=== PATIENT | male | born 1990 | race Caucasian/White ===

== ENCOUNTER 2022-09-04 08:08 | Emergency (ER) | payer OTHER, SELFPAY ==
--- NOTE | ~2022-09-04 | XR_ITS ---
EXAMINATION: XR LUMBOSACRAL SPINE CLINICAL INFORMATION: Low back pain COMPARISON: None TECHNIQUE: Three views of the lumbosacral spine. FINDINGS: Normal alignment. Vertebral body heights are maintained. No evidence of acute fracture. Disc spaces are maintained.. SI joints appear unremarkable. No abnormal soft tissue calcification. The paraspinal soft tissues are normal. XR/XR lumbar spine 2-3V IMPRESSION: No evidence of acute osseous abnormality.
--- NOTE | ~2022-09-04 | CT_ITS ---
EXAMINATION: CT CERVICAL SPINE WITHOUT CONTRAST CLINICAL INFORMATION: Upper neck pain. Possible atlas injury. COMPARISON: None. TECHNIQUE: Contiguous helical images of the cervical spine were obtained without IV contrast. Multiplanar reconstructions were performed. This CT examination was performed using dose optimization techniques as appropriate, variously including the following: *Automated exposure control *Adjustment of mA and/or kV according to patient size (this includes techniques or standardized protocols for targeted exams where dose is matched to indication/reason for exam; i.e. extremities or head) *Use of iterative reconstruction technique DLP: 428 mGy-cm FINDINGS: There is anatomic alignment of the vertebral bodies and posterior elements. The atlantoaxial and atlantooccipital articulations are intact. Vertebral body heights and intervertebral disc spaces are maintained. No evidence of acute fracture. No prevertebral soft tissue swelling. There is no cervical lymphadenopathy. The visualized thyroid gland is unremarkable. The visualized base of the brain is unremarkable. The visualized lung apices are clear. CT/CT cervical spine wo IV con IMPRESSION: No evidence for acute injury to the cervical spine.
[2022-09-04 09:02] VITALS: BP 114/65; PULSE 85; RESP 20; TEMP 36.8; O2SAT 98; BMI 22.0
--- NOTE | 2022-09-04 12:41 | ED.BACK ---
HPI - Back Pain/Injury General Chief Complaint: Neck Pain/Injury Stated Complaint: spine pain Time Seen by Provider: 09/04/22 12:22 Source: patient Mode of arrival: ambulatory Limitations: no limitations History of Present Illness HPI Narrative: Patient is a 32-year-old male with PMH of IBS presenting with an acute complaints upper neck pain and 7 years of lower back pain. He states that the pain is about a 5/10 at this time. Patient denies any trauma. Of note patient does not have a primary care provider at this time and is requesting referrals. Patient has had limited health care, and just recently received health insurance. 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 He has never received a workup for his back pain. Neck pain: Patient reports that the neck pain started last night, and is at the base of his thumb and central. He states that his neck got really tense, and he had limited range of motion when rotating his head to the left side. He states the pain is dull, and is located primarily at the base of his skull. Patient states he is unable to describe the sensation though it sounds like ?thousands of small grains of sand on a glass plate. He denies any trauma. Low Back pain: Patient reports 7 years of low back pain, describing it as sharp. He states the pain limits his range of motion. Also endorses 1 episode of sharp burning sensation going down the back of his leg in and doing rate behind his knee. He reports that after this episode his foot then went numb, ?felt cold . Patient uses ibuprofen at home for pain. Patient reports that this back pain has been impacting his ADLs. MD elicited complaint: back pain and other (Upper neck pain) Pertinent past history: prior back pain (7 years) Onset (ago): day(s) (1 day of cervical neck pain) Timing: improved (Neck pain is improving) and progressively worsening (Back pain progressively worsening) Severity: moderate Similar Symptoms Previously: No Quality: burning (Low back pain), sharp (Low back pain) and dull (Cervical pain) Location: left lower back Radiation: left upper leg (Stops at the knee) Exacerbating factors: movement, walking, lifting and other (Hip flexion) Relieving factors: other (RAST) Context: while lifting, turning/twisting, bending and unknown Associated symptoms: difficulty walking Treatments prior to arrival: NSAIDS and acetaminophen Work related injury: No Related Data Allergies Allergy/AdvReac Type Severity Reaction Status Date / Time No Known Allergies Allergy Unverified 09/04/22 09:01 [No Known Allergies*] Review of Systems Review of Systems: Constitutional : No trauma, No Weight loss, No Fever, No Chills, ENT/Mouth : + Tinnitus, No Hearing loss, No Ear Pain, No Nasal Congestion, No Sinus Pain, No Hoarseness, No sore throat, No Rhinorrhea, No Swallowing Difficulty Cardiovascular : No Chest Pain, No SOB Respiratory : No Cough, No Dyspnea Gastrointestinal : No Nausea, No Vomiting, + Diarrhea, No abdominal Pain, No Hematochezia, No Melena Genitourinary : No Dysuria, No Urinary Frequency, No Hematuria, No Urinary or Bowel Incontinence/retention Musculoskeletal : + Neck pain, + low Back pain, No joint stiffness, No joint swelling Skin : No Skin Lesions, No rash or signs of infection Neuro : + 1 episode of tingling down left leg, No tingling b/l arms. No Weakness, + left leg radiation (1 episode), + Numbness, + headache, no loss of bowel or bladder incontinence, no saddle anesthesia Denies history of IV drug usage. Yes all other systems are reviewed and are negative PMFSH Past Medical History Attestation statement: The following information was validated with the patient. Source: old records reviewed and nursing notes reviewed Social History Social History Advance Directives: No Physical Exam Vital Signs: Vital Signs: Last Vital Signs Temp 98.3 F 09/04/22 09:02 Pulse 85 09/04/22 09:02 Resp 20 09/04/22 09:02 BP 114/65 09/04/22 09:02 Pulse Ox 98 09/04/22 09:02 O2 Del Method 09/04/22 09:02 BMI result Body Mass Index 22.0 vital signs have been reviewed as normal and appeared to be correct. Blood pressure normal. Heart rate normal. Respiration rate normal. Temperature normal. Oxygen saturation normal. Appearance: Alert. Oriented X3. No acute distress. Head: Normal external exam. Normocephalic. Atraumatic. Eyes: PERRLA. EOMI. Conjunctiva and sclera normal. Eyelids normal. ENT: Moist mucous membranes. No trismus noted. No drooling noted. No muffled voice noted. Neck: Normal inspection. Neck supple. FROM. No meningeal signs. Full range of motion. Midline Tenderness at the base of the skull. -Spurling, - facet loading. CVS: Normal heart rate and rhythm. Heart sound normal. No murmurs noted. Pulses normal throughout. Respiratory: No respiratory distress. Painless inspiration. Breath sounds normal. No wheezes/rales/rhonchi noted. Chest nontender. No accessory muscle usage noted or decreased air movement noted. Back: No CVA tenderness. Limited flexion noted. No obvious deformities, or edema. Mild para-spinal muscular tenderness from lumbar region to coccyx. Moderate tenderness around the L5/S1/S2 region. Possible left-sided SI joint pain noted with Gonzalo finger test. + Facet loading on left lumbar spine. All other ROM intact back and lower extremities. 5/5 strength hip extension/flexion, abduction, adduction. Mild Lumbar pain with hip flexion against resistance. Straight leg raise test negative on right; Straight leg raise test negative on left; Reflexes normal ankle and knee bilaterally; EHL motor strength normal bilaterally. No rashes/lesion/induration/fluctuance or signs infection noted. Skin: Skin warm and dry. Normal skin color. Normal skin turgor. No rashes/lesions/lacerations noted. Extremities: No lower extremity edema. Extremities exhibit normal range of motion. Extremities nontender. Neuro: Oriented X 3. No motor deficit. No sensory deficit. Reflexes normal. Patient has a normal steady gait. Course Course Course Narrative: Patient is 32-year-old male presenting with upper cervical pain, and low back pain, pain is currently a 5/10. Upper cervical pain started last night, lower lumbar pain started 7 years ago. Physical exam is significant for -low back pain: limited lumbar flexion, increased focal tenderness around the L5-S2, worse on the left side. + Left-sided lumbar facet loading, + Gonzalo finger test, - straight leg raise. -Cervical pain: Full range of motion. Central tenderness at the base of the skull. Possible spasm of the right cervical muscles. - facet loading, - Spurling. Lumbar pain that consistent with S1/S2 radiculopathy. Possible facet arthropathy. And x-rays ordered to rule out any compression fractures, to confirm diagnosis of a rthritis. 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 CT scan of the neck ordered to rule out soft tissue injury, compression fracture, disc bulge. Plan: - CT scan of the neck - X-ray of the lumbar spine - Referral to PCP. Referral to [facility]. Reevaluation(s) Reevaluation #1: Imaging negative for any acute processes. Will DC home with instructions return if any new or worsening symptoms follow up with primary care provider I gave him a few numbers that he can call to establish a primary care provider. Patient understands agrees with this plan. Time: 14:01 [facility] - Back Pain/Injury Medical Records Attestation: I reviewed the patient's medical records. Imaging Data ct scan of cervical spine: Attestation: I personally reviewed and interpreted this imaging study as follows: Radiologist's impression: FINDINGS: There is anatomic alignment of the vertebral bodies and posterior elements. The atlantoaxial and atlantooccipital articulations are intact. Vertebral body heights and intervertebral disc spaces are maintained.? No evidence of acute fracture. No prevertebral soft tissue swelling. There is no cervical lymphadenopathy. The visualized thyroid gland is unremarkable. The visualized base of the brain is unremarkable. The visualized lung apices are clear. CT/CT cervical spine wo IV con IMPRESSION: No evidence for acute injury to the cervical spine. lumbar spine xray: Attestation: I personally reviewed and interpreted this imaging study as follows: Radiologist's impression: FINDINGS: Normal alignment. Vertebral body heights are maintained. No evidence of acute fracture. Disc spaces are maintained.. SI joints appear unremarkable. No abnormal soft tissue calcification. The paraspinal soft tissues are normal. XR/XR lumbar spine 2-3V IMPRESSION: No evidence of acute osseous abnormality. Discharge Plan Discharge Clinical Impression: Strain of neck muscle, Chronic back pain, Lumbosacral radiculopathy Patient Disposition: Home, Self-Care Instructions: Cervical Strain (ED), Chronic Back Pain (DC) Additional Instructions: You were seen in the emergency department for acute neck pain and low back pain. An x-ray and CT scan were performed. It is likely that you have a strain of the lateral neck muscles, and arthritis the cervical neck. It is also likely that you have arthritis of the lower lumbar spine. I gave you your results. You were offered prednisone, ibuprofen, Tylenol and muscle relaxer although he reported that you will not take them that you will take [id number] medication if you needed. You may also use a warm pack as needed for your low back pain. You may also use an ice pack as needed for your pain. You were given recommendations for primary care providers and referral for [facility]. You may need further workup/diagnostic imaging such as an MRI. Referrals: [facility] [Provider Group] (Chronic low back pain for the past 7 years. S1 radicular pain to the back of the knee. ) Stand Alone Forms: Work/School Release
--- NOTE | 2022-09-04 13:52 | PC.NURSE ---
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 provider aware
== END 2022-09-04 14:00 | disposition home or self-care (01) ==
PROVIDERS: Emergency Provider Emergency Medicine Emergency Medical Services
DX: S16.1XXA Strain of muscle, fascia and tendon at neck level, initial encounter (principal); X50.0XXA Overexertion from strenuous movement or load, initial encounter; G89.29 Other chronic pain; M54.50 Low back pain, unspecified; M54.17 Radiculopathy, lumbosacral region; Y93.89 Activity, other specified; Y92.239 Unspecified place in hospital as the place of occurrence of the external cause; Y99.0 Civilian activity done for income or pay
CPT/HCPCS: 72100; 72125; 99282; 99284

== ENCOUNTER 2023-02-26 09:29 | Emergency (ER) | payer BC, SELFPAY ==
[2023-02-26 09:45] VITALS: BP 113/76; PULSE 85; RESP 16; TEMP 36.8; O2SAT 99; BMI 21.2
--- NOTE | 2023-02-26 10:14 | PC.NURSE ---
Pt reporting that he thinks he has a Right ingenial hernia, he has had one in his left side a few years ago, and had mesh placed. denies swelling in testicle but reports it comes in and out when I sneeze or move around reporting 2/10 pain. Does heavy lifting at job
--- NOTE | 2023-02-26 10:43 | ED_ITS ---
HPI - General Adult General Chief complaint: Abdominal Pain Stated complaint: Hernia Time Seen by Provider: 02/26/23 10:23 Source: patient and RN notes reviewed Mode of arrival: ambulatory Limitations: no limitations History of Present Illness HPI narrative: This is a 32-year-old male, with no significant past medical history who presents to the emergency department with complaints of ?hernia. Patient states that 2 weeks ago he noticed a bulge in his right lower abdomen that is able to be pushed back in. Patient reports that when he is straining his abdominal muscles as well as lifting heavily this bulge becomes more pronounced. He reports that the area is slightly tender but otherwise is not painful. He denies any fevers or chills. He has a history of a left inguinal hernia requiring surgical repair. He is here today as he works at [employer] and needs a formal medical clearance to better assist his boss in which activities he can perform as his job requires him to perform heavy lifting. MD complaint: ?Hernia Onset (ago): week(s) Location: abdomen Radiation: non-radiation Severity: moderate Pain Consistency: intermittent Relieving factors: rest Exacerbating factors: movement Associated symptoms: denies other symptoms Treatments prior to arrival: none Related Data Allergies Allergy/AdvReac Type Severity Reaction Status Date / Time No Known Allergies Allergy Unverified 09/04/22 09:01 [No Known Allergies*] Review of Systems Review of Systems: Yes all other systems are reviewed and are negative COUNT INCLUDES THE [facility] Social History Social History Smoked in Last 30 Days: Yes Substance Use Type: Marijuana Substance Use Frequency: Daily Advance Directives: No Physical Exam ED Vital Signs: Vital Signs - 24 hr 02/26/23 09:45 02/26/23 11:23 Temperature 98.3 F Pulse Rate 85 81 Respiratory Rate 16 16 Blood Pressure 113/76 119/75 Pulse Oximetry 99 97 Oxygen Delivery Method Room Air Room Air BMI result Body Mass Index 21.2 General: Awake, alert, and oriented X3. No acute distress. HEENT: Normal inspection CVS: Normal heart rate and rhythm. Pulses normal. Respiratory: No respiratory distress Skin: Warm, dry, no rashes noted to exposed skin. Normal skin color. Normal skin turgor. Abdomen: There is a approximately 4inch, soft palpable hernia noted to the right lower abdomen, reproducible with mild tenderness. No overlying ecchymosis, erythema, warmth or induration. No drainage. Extremities: Normal inspection Neuro: Oriented X 3. No motor deficit. No sensory deficit. Medical Decision Making Medical Decision Making MDM Narrative: 32 y/o M, with no known past medical history, presenting for evaluation of ?hernia x 2 weeks. Patient reports that he works at [employer] which requires him to frequently lift heavy objects. He states that two weeks ago he noticed a bulge region in his right lower abdomen. He has a history of a inguinal hernia on the left which required surgical repair as a teenager. On examination, palpable right lower abdominal wall hernia that does not extend into the testes. Hernia is reducible with no signs of strangulation. Patient requesting medical clearance for his work. Discussed that he is unable to perform heavy lifting activities, and he does have light duty options at work. Patient given referral to surgeon as this is likely only on to get worse. Patient given red flag warning signs of when to return, and signs of strangulation. Patient also given list of primary care physicians as well as recommendations on how to obtain a primary care physician. Patient understands and agrees with plan, patient is stable for discharge. Differential Diagnosis Differential Diagnoses: The differential diagnosis associated with the presentation includes Hernia, inguinal hernia, abdominal mass Incarcerated hernia Discharge Plan Discharge Clinical Impression: Hernia Patient Disposition: Home, Self-Care Instructions: Inguinal Hernia (ED) Additional Instructions: You have a hernia that is likely going to need surgery. Please follow-up with the general surgeon for further management. Call today to make an appointment Wear compression shorts as this can help support this area. No heavy lifting until you are seen by the surgical team. If you develop any new or worsening symptoms such as overlying skin changes, fevers, chills, worsening abdominal pain, unable to reduce the hernia, please return for further evaluation. Follow-up with your primary care physician. Referrals: [facility] [Provider Group] [facility] [Physician] - Stand Alone Forms: Work/School Release Interventions: ED Discharge Assessment Last Done: 02/26/23 11:25 Discharge Date/Time: 02/26/23 11:31
[2023-02-26 11:23] VITALS: BP 119/75; PULSE 81; RESP 16; O2SAT 97
== END 2023-02-26 11:31 | disposition home or self-care (01) ==
PROVIDERS: Emergency Provider Emergency Medicine
DX: R10.31 Right lower quadrant pain (principal); K40.90 Unilateral inguinal hernia, without obstruction or gangrene, not specified as recurrent
CPT/HCPCS: 99282; 99284

== ENCOUNTER 2023-03-03 06:12 | Emergency (ER) | payer BC, SELFPAY ==
--- NOTE | ~2023-03-03 | CT_ITS ---
EXAMINATION: CT CERVICAL SPINE WITHOUT CONTRAST CLINICAL INFORMATION: Neck pain and stiffness. COMPARISON: None available. TECHNIQUE: 3 mm thin axial and reformatted 2 mm thin sagittal and coronal images of cervical spine were obtained without contrast. This CT examination was performed using dose optimization techniques as appropriate, variously including the following: *Automated exposure control *Adjustment of mA and/or kV according to patient size (this includes techniques or standardized protocols for targeted exams where dose is matched to indication/reason for exam; i.e. extremities or head) *Use of iterative reconstruction technique DLP: 485 mGy-cm FINDINGS: On sagittal reconstructed images there is mild straightening of cervical lordosis. The vertebral heights, alignment and disc heights are normal. The craniovertebral junction and the C1-C2 alignment is normal. There is mild right C7-T1 and T1-T2 facet joint and arthropathy. There is no visible acute fracture, dislocation or subluxation. Punctate calcifications are seen in bilateral tonsillar pillars but no enlargement. The airway is widely patent. Visualized thyroid, submandibular and parotid glands are unremarkable. CT/CT cervical spine wo IV con IMPRESSION: Mild straightening of cervical lordosis likely spasm. No visible acute fracture, dislocation or subluxation seen. Fleischner guidelines were followed.
[2023-03-03 06:22] VITALS: BP 116/66; BP 140/88; PULSE 72; PULSE 80; RESP 16; TEMP 37; O2SAT 100; O2SAT 99; BMI 21.2
--- NOTE | 2023-03-03 06:37 | ED.NECK ---
HPI - Neck Pain/Injury General Chief Complaint: Neck Pain/Injury Stated Complaint: Neck Pain Time Seen by Provider: 03/03/23 06:35 Source: patient Mode of arrival: ambulatory History of Present Illness HPI Narrative: 32-year-old male no significant past medical history presenting to the ED complaining of right-sided neck pain since waking this morning. Reports pain worse with movement and rightward rotation. Denies known injury/trauma or fall, headache, lightheadedness/dizziness, vision change/loss, numbness/tingling, weakness. Denies recent neck manipulation/trauma or heavy lifting. Does report was recently doing yard work for in-laws MD complaint: neck pain Related Data Previous Rx's Medication Instructions Recorded acetaminophen 500 mg tablet 500 mg PO Q6H PRN fever or pain 03/03/23 (Tylenol Extra Strength) #14 tabs cyclobenzaprine 5 mg tablet 5 mg PO Q8H PRN pain (scale score 03/03/23 7-10) 5 days #14 tabs lidocaine 5 % topical patch 1 patch topical DAILY PRN pain #30 03/03/23 (Lidoderm) ea naproxen 500 mg tablet 500 mg PO BID PRN pain 10 days #20 03/03/23 tabs Allergies Allergy/AdvReac Type Severity Reaction Status Date / Time No Known Allergies Allergy Verified 03/03/23 07:08 [No Known Allergies*] Review of Systems Review of Systems: Constitutional: No Fever, No Chills ENT/Mouth: No Ear Pain, No Nasal Congestion, No sore throat, No Rhinorrhea, No Swallowing Difficulty Cardiovascular: No Chest Pain, No SOB Respiratory: No Cough, No Sputum Gastrointestinal: No Nausea, No Vomiting, No Diarrhea, No Constipation, No Abdominal pain Genitourinary: No Dysuria, No Hematuria, No Urinary Incontinence/retention Musculoskeletal: +joint pain, No Myalgias, No Joint Swelling Skin: No Skin Lesions, No rash Neuro: No Weakness, No Numbness, No Paresthesias Yes all other systems are reviewed and are negative Constitutional: Constitutional: Reports as per HPI Neurologic: Denies Abnormal speech present [facility] Past Medical History Attestation statement: The following information was validated with the patient. Social History Social History Alcohol intake: current Alcohol intake frequency: holidays/special occasions only Alcohol type: wine Smoked in Last 30 Days: Yes Use of substances other than those prescribed or required for medical reasons: Yes Substance Use Type: Marijuana Substance Use Frequency: Daily Advance Directives: No Physical Exam Vital Signs: Vital Signs: Last Vital Signs Temp 98.6 F 03/03/23 06:22 Pulse 72 03/03/23 06:22 Resp 16 03/03/23 06:22 BP 116/66 03/03/23 06:22 Pulse Ox 99 03/03/23 06:22 O2 Del Method Room Air 03/03/23 06:22 BMI result Body Mass Index 21.2 Const: General: cooperative, healthy appearing and no acute distress Orientation/consciousness: patient oriented x3 Limitations: no limitations HEENT: Head: Yes normal to inspection and Yes atraumatic Ears: hearing grossly normal bilaterally, external ears normal and TM's normal bilaterally General nose exam: Normal external nose present Face and sinus: Yes normal facial exam Eyes: General: appearance normal, both eyes and all related structures Pupils: Equal, round and reactive pupils present EOM: EOMs intact bilaterally Neck: Other: no midline cervical spinous ttp. +right sided paraspinal and trapezius muscle ttp. Neck: Yes normal visual inspection, Yes no meningeal signs, Yes supple, No anterior neck swelling and Yes torticollis Resp: Effort & Inspection: normal respiratory effort and no respiratory distress Auscultation: clear to auscultation bilaterally Cardio: Rate: regular rate Heart sounds: S1 normal heart sound present and S2 normal heart sound present Peripheral pulses: Peripheral pulses 2+ throughout Back/Spine/Pelvis: Other: No midline cervical/thoracic/lumbar spinous tenderness/step-off or deformity Skin: Rashes: no rashes Wounds: no wounds Neuro: General: patient oriented x3, gait normal, tone normal, moves all extremities, no meningeal signs, no focal motor deficits and CN's II-XI intact bilaterally Cranial nerves: Yes CN's II-XII intact bilaterally and Yes Equal, round and reactive pupils present Cognition (Neuro): normal cognition Speech: No Abnormal speech present Gait exam (Neuro): Normal gait present Motor exam (neuro): 5/5 motor strength present throughout Extrem: General: Yes normal to inspection Course Course Course Narrative: CT cervical spine wo IV con IMPRESSION: Mild straightening of cervical lordosis likely spasm. No visible acute fracture, dislocation or subluxation seen. ? Fleischner guidelines were followed. >0840--patient reports symptomatic improvement after medications given in the ED Results discussed with patient including worrisome signs and symptoms and strict return precautions, and when to return to the emergency department. They verbalized understanding and feel safe for discharge at this time. Medications Administered Discontinued Medications Generic Name Dose Route Start Last Admin Trade Name William PRN Reason Stop Dose Admin Diazepam 2 mg 03/03/23 06:58 03/03/23 07:08 Diazepam 2 Mg Tablet PO 03/03/23 06:59 2 mg ONCE ONE Administration Ketorolac Tromethamine 30 mg 03/03/23 06:58 03/03/23 07:11 Ketorolac Tromethamine 30 Mg/Ml Vial IM 03/03/23 06:59 30 mg ONCE ONE Administration Medical Decision Making Medical Decision Making MDM Narrative: 32-year-old male no significant past medical history presenting to the ED complaining of right-sided neck pain since waking this morning. On exam vital signs stable, NAD, nontoxic appearing, no midline spinous tenderness throughout. Right-sided cervical paraspinal and trapezius muscle tenderness elicited. + torticollis, no meningeal signs. No focal deficits. Concern for MSK pain/spasming. Low suspicion for arterial dissection, meningitis/encephalitis. No evidence of infection/cellulitis. TM WNL. Plan: CT cervical spine per patient request, pain control, re-evaluate Please refer to course for remaining clinical decision making, interpretation of labs/imaging results, and discussions with consultants and/or family members. Differential Diagnosis Differential Diagnoses: The differential diagnosis associated with the presentation includes As above Admission/Observation Consideration of admission/observation: Escalation of care including admission/observation considered Lab Data [facility] Lab Attestation statement: I reviewed the patient's lab results. Radiology Impression Discussion of test interpretation with radiology: I have reviewed the radiologist's reading. External Record Review External record reviewed: Inpatient record, Office record, Outpatient record, Prior outpatient labs, Prior outpatient radiology, Primary care record and Outside ED record Discharge Plan Discharge Clinical Impression: Muscle spasms of neck Patient Disposition: Home, Self-Care Instructions: Muscle Spasm (ED) Additional Instructions: Your CT scan shows evidence of muscle spasming. No fracture or dislocation Your pain is musculoskeletal Flexeril is a muscle relaxer, take at night as it makes you drowsy, do not drive, drink alcohol, or operate machinery while taking it Naproxen as an anti-inflammatory / pain medication, take with food Lidoderm patches are numbing patches, apply to painful area In addition take Tylenol at home If symptoms persist or worsen, pain becomes unbearable, you developed urinary retention or incontinence, or weakness return to the ED Prescriptions: New acetaminophen [Tylenol Extra Strength] 500 mg tablet 500 mg PO Q6H PRN (Reason: fever or pain) Qty: 14 0RF lidocaine [Lidoderm] 5 % adhesive patch,medicated 1 patch topical DAILY MDD remove after 12 hours PRN (Reason: pain) Qty: 30 0RF Rx Instructions: leave on most painful area for up to 12 hrs cyclobenzaprine 5 mg tablet 5 mg PO Q8H PRN (Reason: pain (scale score 7-10)) 5 Days Qty: 14 0RF naproxen 500 mg tablet 500 mg PO BID PRN (Reason: pain) 10 Days Qty: 20 0RF Referrals: Physician,None [Primary Care Provider] - Stand Alone Forms: Work/School Release Interventions: ED Discharge Assessment Last Done: 03/03/23 09:02 Discharge Date/Time: 03/03/23 09:02
[2023-03-03] MEDS: diazePAM 2 MG TABLET PO (07:08)
[2023-03-03] MEDS: Ketorolac Tromethamine 30 MG/ML VIAL IM (07:11)
== END 2023-03-03 09:02 | disposition home or self-care (01) ==
PROVIDERS: Emergency Provider Emergency Medicine
DX: M62.838 Other muscle spasm (principal); M54.2 Cervicalgia
CPT/HCPCS: 72125; 96372; 99284; J1885

== ENCOUNTER 2023-03-17 07:21 | Emergency (ER) | payer BC, SELFPAY ==
[2023-03-17 07:46] VITALS: BP 139/76; PULSE 80; RESP 18; TEMP 37; O2SAT 99; BMI 21.2
--- NOTE | 2023-03-17 08:25 | ED_ITS ---
HPI - Neck Pain/Injury General Chief Complaint: Neck Pain/Injury Stated Complaint: Neck pain Time Seen by Provider: 03/17/23 07:45 Source: patient Mode of arrival: ambulatory Limitations: no limitations History of Present Illness MD complaint: neck pain Onset (ago): week(s) (2) Radiation: right lateral, right shoulder and right upper extremity Severity: severe Severity scale (1-10): 8 Quality: sharp, aching and tingling Duration: constant Relieving factors: medication OTC/prescribed Exacerbating factors: movement of extremity and movement of neck Associated symptoms: tingling Treatments prior to arrival: acetaminophen, ibuprofen, naproxen and prescription analgesic Related Data Previous Rx's Medication Instructions Recorded acetaminophen 500 mg tablet 500 mg PO Q6H PRN fever or pain 03/03/23 (Tylenol Extra Strength) #14 tabs meloxicam 15 mg tablet 15 mg PO DAILY #20 tabs 03/17/23 methocarbamol 750 mg tablet 750 mg PO Q8H PRN spasm #20 tabs 03/17/23 prednisone 20 mg tablet 20 mg PO DAILY #5 tabs 03/17/23 Allergies Allergy/AdvReac Type Severity Reaction Status Date / Time No Known Allergies Allergy Verified 03/17/23 07:49 [No Known Allergies*] [facility] Social History Social History Alcohol intake: current Alcohol intake frequency: holidays/special occasions only Alcohol type: wine Substance Use Type: Marijuana Advance Directives: No Advance Directives Information Provided: Yes Physical Exam Vital Signs: Vital Signs: Last Vital Signs Temp 98.6 F 03/17/23 07:46 Pulse 80 03/17/23 07:46 Resp 18 03/17/23 07:46 BP 139/76 03/17/23 07:46 Pulse Ox 99 03/17/23 07:46 O2 Del Method Room Air 03/17/23 07:46 BMI result Body Mass Index 21.2 GEN: Well developed, no acute distress, alert, oriented HEENT: Normocephalic, atraumatic, normal external ears, nose appears normal Eyes: Normal to appearance Neck: Right paraspinous tenderness, no midline tenderness, no step-off, no lymphadenopathy Respiratory: Talks in complete sentences, no respiratory distress Extremities: No clubbing cyanosis or edema Neurologic: No focal neurologic deficits, cranial nerves 2-12 intact, gait no rmal, strength is 5/5 in bilateral upper extremities, sensation is intact bilaterally Skin: No rash Course Course Course Narrative: Patient presents with acute neck pain. This is most likely either muscle spasm or some sort of cervical radiculopathy. Will start patient on steroids, continue anti-inflammatory medications, Tylenol as needed, capsaicin cream muscle relaxers as needed. I will refer the patient to spine surgery as well for further evaluation. He is aware he may require further intervention such as com pulmonary care like chiropractics, acupuncture, physical therapy. Medical Decision Making Medical Decision Making MDM Narrative: 32-year-old male presents with nontraumatic PET neck pain. He was seen previously for the same symptoms. X-ray was negative except for straightening of the normal lordotic curve. Examination reveals some mild right paraspinous tenderness, no midline tenderness or step-off, he was otherwise neurovascularly intact and strength was preserved. I suspect either muscle spasm, sprain, strain or cervical radiculopathy. Patient will be treated with anti- inflammatory medications, analgesics, muscle relaxers. Will refer patient to spine surgery Differential Diagnosis Differential Diagnoses: The differential diagnosis associated with the presentation includes (See above) External Record Review External record reviewed: Prior outpatient radiology (X-ray neck) Tests considered The following testing was considered but not selected: X-ray neck, CT cervical spine, MRI cervical spine Prescription Management I considered prescription management with: Pain Medication Discharge Plan Discharge Clinical Impression: Torticollis Patient Disposition: Home, Self-Care Instructions: Neck Pain (ED) Additional Instructions: For pain: Meloxicam 15 mg daily for 14 days Tylenol 1000 mg every 6 hours as needed for additional pain relief MEthocarbamol 750 every 8 hours as needed, may cause sedation Capsaicin Cream three times daily as needed prednisone, starting tomorrow, 20 mg daily for 5 days heat and/or ice as needed Prescriptions: New meloxicam 15 mg tablet 15 mg PO DAILY Qty: 20 0RF methocarbamol 750 mg tablet 750 mg PO Q8H PRN (Reason: spasm) Qty: 20 0RF prednisone 20 mg tablet 20 mg PO DAILY Qty: 5 0RF Discontinued lidocaine [Lidoderm] 5 % adhesive patch,medicated 1 patch topical DAILY MDD remove after 12 hours PRN (Reason: pain) Qty: 30 0RF Rx Instructions: leave on most painful area for up to 12 hrs cyclobenzaprine 5 mg tablet 5 mg PO Q8H PRN (Reason: pain (scale score 7-10)) 5 Days Qty: 14 0RF naproxen 500 mg tablet 500 mg PO BID PRN (Reason: pain) 10 Days Qty: 20 0RF No Action acetaminophen [Tylenol Extra Strength] 500 mg tablet 500 mg PO Q6H PRN (Reason: fever or pain) Qty: 14 0RF Referrals: Nico Barreto MD, PhD [Physician] - Stand Alone Forms: Work/School Release
[2023-03-17] MEDS: Ibuprofen 800 MG TABLET PO (09:03)
[2023-03-17] MEDS: dexAMETHasone 2 MG TABLET 10 MG PO (09:03)
[2023-03-17] MEDS: Acetaminophen 325 MG TABLET 975 MG PO (09:04)
--- NOTE | 2023-03-17 10:05 | PC.NURSE ---
late entry 0915 Pt evaluated by provider. medicated as ordered. pt aware and agreeable to plan. states no questions.
== END 2023-03-17 10:08 | disposition home or self-care (01) ==
PROVIDERS: Emergency Provider Emergency Medicine
DX: M43.6 Torticollis (principal); M54.2 Cervicalgia; M25.511 Pain in right shoulder; Z79.899 Other long term (current) drug therapy
CPT/HCPCS: 99283; 99284; J8540

== ENCOUNTER → 2023-03-25 10:19 | Outpatient (BNVA) | payer BC, SELFPAY | PROVIDERS: Visit Provider Surgery ==

== ENCOUNTER 2023-03-31 04:57 | Emergency (ER) | payer BC, SELFPAY ==
[2023-03-31 05:14] VITALS: BP 110/74; PULSE 93; RESP 16; O2SAT 99; BMI 21.7
--- NOTE | 2023-03-31 05:39 | ED_ITS ---
HPI - Neck Pain/Injury General Chief Complaint: Neck Pain/Injury Stated Complaint: Neck pain Time Seen by Provider: 03/31/23 05:18 History of Present Illness HPI Narrative: Patient is a 32-year-old male presents today with having neck pain. The neck pain has been ongoing for the last month. Patient had a CT scan of the C-spine done previously. Was grossly negative for any acute evidence of fracture. No gross inflammation noted. No gross nerve root impingement noted. Patient cla ims the pain is still getting worse. It is worse with movement to the right. The pain is over the right neck right trapezius area. There is no radiation to the pain. Patient claims that the symptoms are not affected by movement of his head to the left. Patient denies any coughing congestion upper respiratory symptoms. Denies any focal weakness. He is from home. He works at [employer] and had to lift objects from [place] for time. No history of IV drug use Related Data Previous Rx's Medication Instructions Recorded acetaminophen 500 mg tablet 500 mg PO Q6H PRN fever or pain 03/03/23 (Tylenol Extra Strength) #14 tabs meloxicam 15 mg tablet 15 mg PO DAILY #20 tabs 03/17/23 methocarbamol 750 mg tablet 750 mg PO Q8H PRN spasm #20 tabs 03/17/23 prednisone 20 mg tablet 20 mg PO DAILY #5 tabs 03/17/23 methylprednisolone 4 mg tablets in 4 mg PO DAILY #21 ea 03/31/23 a dose pack (Medrol (Arnulfo)) Allergies Allergy/AdvReac Type Severity Reaction Status Date / Time No Known Allergies Allergy Verified 03/31/23 05:16 [No Known Allergies*] Review of Systems Review of Systems: Positive neck pain on the right side Yes all other systems are reviewed and are negative [facility] Past Medical History Attestation statement: The following information was validated with the patient. Surgical History Hx of hernia repair Social History Social History Alcohol intake: never Substance Use Type: Marijuana Physical Exam Vital Signs: Vital Signs: Last Vital Signs Pulse 93 03/31/23 05:14 Resp 16 03/31/23 05:14 BP 110/74 03/31/23 05:14 Pulse Ox 99 03/31/23 05:14 O2 Del Method Room Air 03/31/23 05:14 BMI result Body Mass Index 21.7 Appearance: Alert. Oriented X3. No acute distress. Eyes: Pupils equal, round and reactive to light. ENT: Pharynx normal. Neck: Normal inspection. Neck supple. No lymph nodes noted. No crepitus. Positive pain on palpation of the right trapezius muscle. Trachea is midline. Supple. CVS: Normal heart rate and rhythm. Pulses normal. Normal S1 and S2 Respiratory: No respiratory distress. Breath sounds normal. No Wheezing. No rales Abdomen: Soft and nontender. No rigidity. No distention. good BS x4 Skin: Skin warm and dry. Normal skin color. Normal skin turgor. Extremities: No lower extremity edema. Neurovascular intact to all extremities. No Lacerations. No Rash Neuro: Oriented X 3. No motor deficit. No sensory deficit. Moving all extermities. No slurred speech. Cranial nerve 2-12 intact. Medical Decision Making Medical Decision Making [facility] Narrative: Patient had a CT scan of the C-spine done previously. Symptoms are consistent with having torticollis. Patient well appearing. Neurologically intact. Will have patient take a steroid Medrol Dosepak. Close follow-up on an outpatient basis. Patient has appointment with primary. He does not have a referral to spine. Will ask patient to contact primary for a contact for spine as pain has been persistent for weeks. In stable condition. No bowel urinary incontinence. No focal weakness. Differential Diagnosis Fracture, torticollis, spinal cord impingement. Lab Data [facility] Lab Attestation statement: I reviewed the patient's lab results. External Record Review External record reviewed: Inpatient record Discharge Plan Discharge Clinical Impression: Torticollis Patient Disposition: Home, Self-Care Instructions: Neck Pain (ED) Prescriptions: New methylprednisolone [Medrol (Arnulfo)] 4 mg tablets,dose pack 4 mg PO DAILY Qty: 21 0RF Rx Instructions: As directed by the packaging No Action acetaminophen [Tylenol Extra Strength] 500 mg tablet 500 mg PO Q6H PRN (Reason: fever or pain) Qty: 14 0RF meloxicam 15 mg tablet 15 mg PO DAILY Qty: 20 0RF methocarbamol 750 mg tablet 750 mg PO Q8H PRN (Reason: spasm) Qty: 20 0RF prednisone 20 mg tablet 20 mg PO DAILY Qty: 5 0RF Referrals: Physician,Unknown J [Primary Care Provider] - (Please follow-up with spine surgery in the next week)
== END 2023-03-31 05:50 | disposition home or self-care (01) ==
PROVIDERS: Emergency Provider Emergency Medicine Emergency Medical Services
DX: M43.6 Torticollis (principal); M54.2 Cervicalgia
CPT/HCPCS: 99282; 99283

== ENCOUNTER 2023-04-25 07:00 | Day surgery (SDC) | payer BC, SELFPAY ==
--- NOTE | 2023-04-24 09:28 | P.CONAN_ITS ---
Documented by User: Theodora Michel NP 04/24/23 09:45 HPI - Anesthesia Eval Consult details Narrative: 32yo M for Hernia Repair Inguinal open with [place] [facility] [place]23 with torticolis/neck spasm - rx steroid/relaxer. Telephone call with pt 04/24/23. No improvement in pain/mobility. Very limited neck mobility. Pending referral to spine. Case [facility] Active Problems Active Problems: All Active Problems (Updated 03/25/23 @ 10:43 by Robbin Fox MD) Right inguinal hernia (Acute) Past Medical History Medical History Back pain Neck pain Smoker Surgical History Surgical History Hx of hernia repair Social History Social History Alcohol intake: never Substance Use Type: Marijuana Advance Directives: No Advance Directives Information Provided: Yes Meds Allergies Allergy/AdvReac Type Severity Reaction Status Date / Time No Known Allergies Allergy Verified 04/22/23 15:57 [No Known Allergies*] Exam Exam Date and Time: April 24, [id number] Narrative Narrative: CT cervical spine wo IV con 02/2023 IMPRESSION: Mild straightening of cervical lordosis likely spasm. No visible acute fracture, dislocation or subluxation seen. Assessment and Plan Assessment Anesthesia Assessment: Chart Reviewed Documented by User: Juan Antonio Chang MD 04/25/23 07:23 [facility] Past Medical History Medical History Back pain Neck pain Smoker Family History Family history of problems with anesthesia: No Surgical History Surgical History Hx of hernia repair History of Problems with Anesthesia: No Social History Social History Alcohol intake: never Substance Use Type: Marijuana Advance Directives: No Advance Directives Information Provided: Yes Meds Allergies Allergy/AdvReac Type Severity Reaction Status Date / Time No Known Allergies Allergy Verified 04/22/23 15:57 [No Known Allergies*] Exam Airway Mallampati Class: II TM Dist: <=3cm Neck ROM: Limited Heart: rrr Lungs: cta Assessment and Plan Assessment Anesthesia Assessment: Anesthesia Plan Discussed and Smoking Cess. Discussed Final Anesthetic Review Family History of Problems with Anesthesia: No History of Problems with Anesthesia: No NPO: Yes ASA Class: II Final Preanesthetic Review: No Changes in Pt Med Stat, Meds/Allgs Chart Reviewed, Consent Obtained/Reviewed and Anes Risks/Benef Reviewed Patient Risk: Intermediate Procedure Risk: Intermediate Anesthetic Plan Anesthetic Plan: GA and Agree w/ Assess. and Plan Disposition: Standard PACU
--- NOTE | 2023-04-24 11:16 | MHC.SHP ---
Pre-Procedural Eval Section A Date of Service: 04/24/23 The patient is an INPATIENT: No Changes since office visit: No Cold of Flu in the past 2 weeks, No New Medical Problems, No Changes in Medication and No Patient answered all questions The History & Physical has been completed within 30 days and I have reviewed it.: Yes Section B Chief Complaint: Unilateral inguinal hernia, without obstruction Allergies: Allergies Allergy/AdvReac Type Severity Reaction Status Date / Time No Known Allergies Allergy Verified 04/22/23 15:57 [No Known Allergies*] Plan I have reviewed the history and physical and performed a pertinent physical examination on my patient. No changes have occurred unless specified. Time Spent With Patient Time: Total time managing care of this patient today ____ minutes.
[2023-04-25] VITALS (7 sets, daily range): BP systolic 102–123; BP diastolic 50–69; PULSE 66–84; RESP 12–20; TEMP 36.3–37.2; O2SAT 99–100; BMI 22.0
--- NOTE | 2023-04-25 07:43 | PC.NURSE ---
pt vasovagal response with iv start. syncope x1 trendelenberg, ivf w.o. LR. diaphoretic. hr 40's bp 108/35 with return of consciousness. hob back up cool cloth in place.
[2023-04-25] MEDS: Lactated Ringers 1,000 ML 100 ML IVCONT (07:46)
--- NOTE | 2023-04-25 07:48 | PC.NURSE ---
pt alert & oriented transient nausea relieved. tolerating prep well.
--- NOTE | 2023-04-25 08:55 | W.PM.OPN ---
Operative Note Operative Note Date of Service: 04/25/23 Narrative: Preoperative diagnosis: []Symptomatic right inguinal hernia Postop diagnosis: [] sac Procedure [] open right inguinal herniorrhaphy with Bard mesh Surgeon: [] [employer]: [] Type of Anesthesia: [] general Indication for surgery: [] large indirect right inguinal hernia. No direct hernia. Findings: [] Patient brought to the operating room, placed on the operative table in supine position, after adequate level of general anesthesia was induced, the right groin was prepped and draped in usual sterile fashion. Using small right lui inguinal incision, this carried down through skin, subcutaneous tissue, and Rene's fascia. External oblique fibers were opened in the direction with care to isolate and preserve the ilioinguinal and iliohypogastric nerves were the procedure. the spermatic cordl was identified and retracted from the field. No direct hernia was demonstrated. Very large indirect hernia sac was from the spermatic cord and reduced. A Bard plug was placed in this indirect defect and sutured inferiorly to the inguinal ligament, and superiorly to the transversalis fascia using interrupted 0 Ethibond suture. Mesh was in good position with no tension and also covered the inguinal floor. The wound Was irrigated, secured hemostasis, and closed in the following manner; external oblique fascia was reapproximated using running 2-0 Vicryl suture. Rene's fascia was closed using up to 3-0 Vicryl sutures. Interrupted inverted subdermal 3-0 Vicryl sutures followed by running subcuticular 4-0 Vicryl sutures were placed. Steri-Strips and sterile dressings were applied. Wound was infiltrated 0.5% Marcaine/ 1% lidocaine at completion the procedure. Ipsilateral testicle was intrascrotal at completion of the procedure. Sponge, needle, and instrument counts were reported to be correct. Patient tolerated the procedure well and emerged anesthesia stable condition. EBL minimal
== END 2023-04-25 10:12 | disposition home or self-care (01) ==
PROVIDERS: Visit Provider Surgery
PROC: (CPT 49505; principal; 2023-04-25 08:20)
DX: K40.90 Unilateral inguinal hernia, without obstruction or gangrene, not specified as recurrent (principal); F17.210 Nicotine dependence, cigarettes, uncomplicated; F12.90 Cannabis use, unspecified, uncomplicated; M54.9 Dorsalgia, unspecified; M54.2 Cervicalgia; Z79.899 Other long term (current) drug therapy
CPT/HCPCS: 49505; C1781; J0131; J0690; J1885; J2795

== ENCOUNTER → 2023-04-28 11:19 | Outpatient (BNVA) | payer BC, SELFPAY | PROVIDERS: Visit Provider Surgery ==

== ENCOUNTER → 2023-05-09 09:30 | Outpatient (BNVA) | payer BC, SELFPAY | PROVIDERS: Visit Provider Surgery ==

== ENCOUNTER 2024-04-05 08:32 | Emergency (ER) | payer BC, SELFPAY ==
[2024-04-05 08:49] VITALS: BP 116/72; PULSE 78; RESP 16; TEMP 36.8; O2SAT 100; BMI 23.1
--- NOTE | 2024-04-05 09:31 | ED.NECK ---
HPI - Neck Pain/Injury General Chief Complaint: Neck Pain/Injury Stated Complaint: neck pain Time Seen by Provider: 04/05/24 09:30 Source: patient Mode of arrival: ambulatory Limitations: no limitations History of Present Illness HPI Narrative: 33 year old male. hx of right inguinal hernia and previous neck pain, presents for increased neck pain since Friday morning after waking up. Pain is worse with movement in all directions. Reports no trauma. Has experienced pain like this before. Patient has taken muscle relaxer which has not helped. No fevers, chills, numbness, weakness, tingling, headaches, vision changes, or dizziness reported. No chest pain or shortness of breath. Related Data Previous Rx's ?Medication ?Instructions ?Recorded acetaminophen 500 mg tablet 500 mg PO Q6H PRN fever or pain 03/03/23 (Tylenol Extra Strength) #14 tabs meloxicam 15 mg tablet 15 mg PO DAILY #20 tabs 03/17/23 methocarbamol 750 mg tablet 750 mg PO Q8H PRN spasm #20 tabs 03/17/23 hydrocodone 5 mg-acetaminophen 325 1 tab PO Q4-6H PRN pain #30 tabs 04/25/23 mg tablet acetaminophen 325 mg capsule 325 mg PO Q4H PRN pain #30 caps 04/05/24 (Tylenol) cyclobenzaprine 10 mg tablet 10 mg PO BEDTIME PRN muscle spasm 04/05/24 #7 tabs lidocaine 5 % topical patch 1 patch topical DAILY PRN pain #15 04/05/24 ea naproxen 500 mg tablet 500 mg PO BID #14 tabs 04/05/24 prednisone 20 mg tablet 40 mg (2 x 20 mg) PO DAILY 5 days 04/05/24 #10 tabs Allergies Allergy/AdvReac Type Severity Reaction Status Date / Time No Known Allergies Allergy Verified 04/05/24 08:52 [No Known Allergies*] Review of Systems Review of Systems: Yes all other systems are reviewed and are negative PMFSH Past Medical History Attestation statement: The following information was validated with the patient. Source: old records reviewed and nursing notes reviewed Medical History (Updated 04/05/24 @ 09:43 by MARY Wilkerson) Syncope Neck pain Smoker Back pain Surgical History (Updated 05/09/23 @ 09:37 by DAYANA Cao) Right inguinal hernia (04/25/23) Hx of hernia repair Social History Social History Alcohol intake: never Patient Tobacco Use Status: Current everyday Tobacco user Tobacco use type: Pipe Substance Use Type: Marijuana Advance Directives: No Advance Directives Information Provided: No Physical Exam Vital Signs: Vital Signs: Last Vital Signs Temp 98.2 F 04/05/24 08:49 Pulse 78 04/05/24 08:49 Resp 16 04/05/24 08:49 BP 116/72 04/05/24 08:49 Pulse Ox 100 04/05/24 08:49 O2 Del Method Room Air 04/05/24 08:49 BMI result Body Mass Index 23.1 vss Appearance: Alert.? Oriented X3.? No acute distress.? Head: Normocephalic, atraumatic, no step-offs or deformities Eyes: Pupils equal, round and reactive to light.? Neck: Normal inspection.?+Discomfort with ROM of neck in all directions. No midline tenderness, but associated paraspinous cervical muscle tenderness to palpation throughout. No meningeal signs. CVS: Normal heart rate and rhythm.? Pulses normal.? Respiratory: No respiratory distress.? Breath sounds normal.? Abdomen: Soft and nontender.? Skin: Skin warm and dry.? Normal skin color.? Normal skin turgor.? Extremities: No lower extremity edema.? No calf ttp. 5/5 strength to bilateral upper and lower extremities. 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 Back: No midline tenderness, no C-spine tenderness, full range of motion, no CVA tenderness bilaterally Neuro: Oriented X 3.? No motor deficit.? No sensory deficit. CN 2-12 intact Course Reevaluation(s) Reevaluation #1: Educated patient on diagnosis and treatment plan, answered all question, patient verbalizes understanding. At this time patient will be discharged home, advised to return with new or worsening symptoms. Educated on worrisome signs and symptoms and when to return. At this time I feel comfortable discharge home. Time: 10:05 Medical Decision Making Medical Decision Making [facility] Narrative: 0901 33 year old male presents with atraumatic neck pain. PE significant for Neck: Normal inspection.?+Discomfort with ROM of neck in all directions. No midline tenderness, but associated paraspinous cervical muscle tenderness to palpation throughout. No meningeal signs. Hx and PE concistent with [place] vs sprain or strain. Unlikely cervical myelopathy, cord compression, encephalitis, meningitis, subluxation, fracture, dislocation, epidural abcess, and cauda equina. Plan: medicate and reasess Differential Diagnosis Differential Diagnoses: The differential diagnosis associated with the presentation includes Hx and PE concistent with tot[place] vs sprain or strain. Unlikely cervical myelopathy, cord compression, encephalitis, meningitis, subluxation, fracture, dislocation, epidural abcess, and cauda equina. Admission/Observation Consideration of admission/observation: Escalation of care including admission/observation considered Unlikely External Record Review External record reviewed: Office record, Outpatient record and Prior outpatient labs Tests considered The following testing was considered but not selected: No need for Xray, atraumatic No red flag symptoms, no need for MRI Prescription Management I considered prescription management with: Pain Medication and Other Lidocaine and prednisone Discharge Plan Discharge Clinical Impression: Torticollis Patient Disposition: Home, Self-Care Instructions: Neck Pain (ED) Additional Instructions: Take your medications as prescribed. If you were prescribed antibiotics today, it is important that you take your medication to their entirety, do not skip any doses, do not finish them early. Follow-up with your primary care provider this week. Return to the emergency department with new or worsening symptoms. In case of emergency call 911 Prescriptions: New acetaminophen [Tylenol] 325 mg capsule 325 mg PO Q4H PRN (Reason: pain) Qty: 30 0RF cyclobenzaprine 10 mg tablet 10 mg PO BEDTIME PRN (Reason: muscle spasm) Qty: 7 0RF prednisone 20 mg tablet 40 mg PO DAILY 5 Days Qty: 10 0RF lidocaine 5 % adhesive patch,medicated 1 patch topical DAILY PRN (Reason: pain) Qty: 15 0RF Rx Instructions: leave on most painful area for up to 12 hrs naproxen 500 mg tablet 500 mg PO BID Qty: 14 0RF No Action acetaminophen [Tylenol Extra Strength] 500 mg tablet 500 mg PO Q6H PRN (Reason: fever or pain) Qty: 14 0RF meloxicam 15 mg tablet 15 mg PO DAILY Qty: 20 0RF methocarbamol 750 mg tablet 750 mg PO Q8H PRN (Reason: spasm) Qty: 20 0RF hydrocodone-acetaminophen 5-325 mg tablet 1 tab PO Q4-6H PRN (Reason: pain) Qty: 30 0RF Rx Instructions: Partial Fill upon patient request. Print Language: Danish
[2024-04-05 10:31] VITALS: BP 116/72; PULSE 78; RESP 16; TEMP 36.8; O2SAT 100
--- NOTE | 2024-04-05 10:32 | PC.NURSE ---
PT WAS SEEN AND CARE PLAN AND DISCHARGE PLAN WERE DISCUSSED WITH THE PT, BY PROVIDER
== END 2024-04-05 10:33 | disposition home or self-care (01) ==
PROVIDERS: Emergency Provider Emergency Medicine
DX: M43.6 Torticollis (principal); M54.2 Cervicalgia; F17.200 Nicotine dependence, unspecified, uncomplicated; F12.90 Cannabis use, unspecified, uncomplicated
CPT/HCPCS: 99282; 99283

== ENCOUNTER 2024-04-22 14:51 | Outpatient (AMB) | payer BC, SELFPAY ==
[2024-04-22 15:10] VITALS: BP 104/55; PULSE 60; BMI 21.6
--- NOTE | 2024-04-22 15:10 | MHC.OFFVIS ---
Vital Signs 04/22/24 15:10 Height 5 ft 8 in Weight 142 lb BMI 21.6 BP 104/55 L Blood Pressure Location Rt brachial Position Sitting Pulse 60 Intake Visit Reasons: pain, swelling s/p ing hernia repair by Dr. Fox Intake Note: This patient presents for an assessment for pain, swelling status post open right inguinal herniorrhaphy with Bard mesh (04/25/23). * pt Patient c/o; reports pain and swelling right groin, reports no bulge. 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 Fox: Details: 33-year-old male here because of right groin pain. He had undergone right inguinal hernia repair last year with alber Fox. He says that he has had right groin pain described as dull and extended to the testicle for several months now. He says seems to be more of a pressure type of pain. He does work in [employer] and does a lot of the activities so he feels that this does not help with this problem. He He denies GI complaints. He denies urinary complaints. He denies any palpable mass on the right groin or testicle. [facility] Medical History Right groin pain Syncope Neck pain Smoker Back pain Surgical History Right inguinal hernia (04/25/23) Hx of hernia repair Social History Alcohol intake: never Patient Tobacco Use Status: Current everyday Tobacco user Tobacco use type: Pipe Substance Use Type: Marijuana Review of Systems Const Denies chills and Denies fever(s) Card Denies chest pain, Denies dyspnea and Denies dyspnea on exertion Resp Denies cough, Denies dyspnea and Denies dyspnea on exertion GI Denies hematochezia and Denies change in bowel habits Denies hematuria and Denies difficulty urinating Musc Denies back pain and Denies limited range of motion Neuro Denies focal weakness and Denies convulsions Psych Denies depression and Denies mood swings Physical Exam Vital Signs: Last Vital Signs Pulse 60 04/22/24 15:10 BP 104/55 L 04/22/24 15:10 BMI result Body Mass Index 21.6 Const General: comfortable and no acute distress Orientation/consciousness: patient oriented x3 Neck Neck: Yes no lymphadenopathy Resp Auscultation: clear to auscultation bilaterally Cardio Rhythm: regular rhythm GI Other: Right inguinal hernia repair site noted, no palpable mass even with Valsalva, repair site intact Palpation (GI): Soft to palpation, nontender and no guarding Neuro General: patient oriented x3 Assessment & Plan Assessment & Plan (1) Right groin pain: Code(s): R10.31 - Right lower quadrant pain Category: Medical Plan: He has had chronic right groin pain and he says this started after his right inguinal hernia repair last year I am going to order for a CAT scan of the pelvis without any recurrence. I told him that we may need to order for an ultrasound of the scrotum as well down the line if he has pain that extends into the testicle His exam is otherwise benign I will see him in the office to review his CT scan. He says he has comfortable with the plan. Orders: Orders CT pelvis wo IV con Today R10.31 - Right lower quadrant pain Coding Level of Care Code Est Pt Level 3 (60064) Diagnoses Right groin pain R10.31
== END 2024-04-22 15:33 | disposition home or self-care (01) ==
PROVIDERS: Visit Provider Surgery
DX: R10.31 Right lower quadrant pain (principal)
CPT/HCPCS: 99213

== ENCOUNTER → 2024-04-22 14:51 | Outpatient (BNVA) | payer BC, SELFPAY | PROVIDERS: Visit Provider Surgery ==

== ENCOUNTER 2024-05-13 08:28 | Emergency (ER) | payer BC, SELFPAY ==
--- NOTE | ~2024-05-13 | XR_ITS ---
EXAMINATION: XR LUMBOSACRAL SPINE CLINICAL INFORMATION: Low back pain for months COMPARISON: Lumbar spine 09/04/2022 TECHNIQUE: Three views of the lumbosacral spine. FINDINGS: The vertebral bodies and posterior elements are normal. The disc spaces are preserved and the vertebral alignment is normal. The paraspinal soft tissues are normal. XR/XR lumbar spine 2-3V IMPRESSION: Unremarkable examination.
[2024-05-13 08:31] VITALS: BP 135/71; PULSE 110; RESP 19; TEMP 36.6; O2SAT 98; BMI 21.3
--- NOTE | 2024-05-13 09:46 | ED_ITS ---
HPI - General Adult General Chief complaint: Back Pain/Injury Stated complaint: back pain Time Seen by Provider: 05/13/24 09:46 Source: patient Mode of arrival: ambulatory Limitations: no limitations History of Present Illness ED Provider: ambrocio MIRANDA narrative: Patient is a 33-year-old male presenting to the ED with complaint of lower back pain ongoing for the past month and a half. States that his pain began initially in his neck back in March. He was seen here several times in March for torticollis. Since that time he feels his pain has moved from his neck down to his lower back. Worse on right side. At times radiates down right leg to the bottom of his foot. Denies IV drug use, fevers, history of cancer. Denies saddle anesthesia or bowel or bladder incontinence or urinary retention. Works at [employer] and is frequently lifting heavy items. Has been prescribed prednisone in the past with little relief. Has not been to physical therapy. Has appointment with PCP but not until June. complaint: low back pain Onset (ago): month(s) Location: back Radiation: extremity Severity: severe Quality: aching and other (shooting) Pain Consistency: colicky Relieving factors: rest Exacerbating factors: movement Associated symptoms: denies other symptoms Treatments prior to arrival: other Related Data Previous Rx's ?Medication ?Instructions ?Recorded acetaminophen 500 mg tablet 500 mg PO Q6H PRN fever or pain 03/03/23 (Tylenol Extra Strength) #14 tabs meloxicam 15 mg tablet 15 mg PO DAILY #20 tabs 03/17/23 methocarbamol 750 mg tablet 750 mg PO Q8H PRN spasm #20 tabs 03/17/23 hydrocodone 5 mg-acetaminophen 325 1 tab PO Q4-6H PRN pain #30 tabs 04/25/23 mg tablet acetaminophen 325 mg capsule 325 mg PO Q4H PRN pain #30 caps 04/05/24 (Tylenol) cyclobenzaprine 10 mg tablet 10 mg PO BEDTIME PRN muscle spasm 04/05/24 #7 tabs lidocaine 5 % topical patch 1 patch topical DAILY PRN pain #15 04/05/24 ea naproxen 500 mg tablet 500 mg PO BID #14 tabs 04/05/24 prednisone 20 mg tablet 40 mg (2 x 20 mg) PO DAILY 10 days 05/05/24 #20 tabs Allergies Allergy/AdvReac Type Severity Reaction Status Date / Time No Known Allergies Allergy Verified 05/13/24 08:34 [No Known Allergies*] Review of Systems Review of Systems: As per HPI. Yes all other systems are reviewed and are negative Constitutional: Constitutional: Reports as per HPI [facility] Past Medical History Medical History (Updated 05/13/24 @ 13:15 by Estella Castillo NP) Right groin pain Syncope Neck pain Smoker Back pain Surgical History Right inguinal hernia (04/25/23) Hx of hernia repair Social History Social History Alcohol intake: never Patient Tobacco Use Status: Current everyday Tobacco user Tobacco use type: Pipe Substance Use Type: Marijuana Advance Directives: No Advance Directives Information Provided: Yes Physical Exam ED Vital Signs: Vital Signs - 24 hr 05/13/24 08:31 Temperature 98 F Pulse Rate 110 H Respiratory Rate 19 Blood Pressure 135/71 Pulse Oximetry 98 Oxygen Delivery Method Room Air BMI result Body Mass Index 21.3 Vital signs have been reviewed and appear to be correct. Blood pressure normal. Heart rate slightly tachycardic. Respiratory rate normal. Temperature normal. Oxygen saturation normal. Const General: cooperative, healthy appearing and no acute distress Orientation/consciousness: oriented to person, oriented to place, oriented to time and patient oriented x3 Limitations: no limitations HENMT Head: Yes normocephalic and Yes atraumatic Ears: external ears normal General nose exam: Normal external nose present Face and sinus: Yes face symmetric Mouth: oropharynx normal and moist mucous membranes Throat: Yes uvula midline Eyes Pupils: Equal, round and reactive pupils present Neck Neck: Yes normal visual inspection and Yes supple Resp Effort & Inspection: normal respiratory effort and able to speak in complete sentences Auscultation: clear to auscultation bilaterally Cardio Rate: regular rate Rhythm: regular rhythm Heart sounds: S1 normal heart sound present and S2 normal heart sound present GI Palpation (GI): Soft to palpation and nontender Auscultation: normoactive bowel sounds General: Yes no CVA tenderness Back/Spine/Pelvis Back: no CVA tenderness Cervical Spine: normal cervical lordosis, cervical ROM normal, No cervical muscular tenderness, No pain with cervical ROM, No Cervical spine tenderness and No step off deformity Thoracic/Lumbar Spine: thoracic and lumbar spine normal to inspection, thoraco- lumbar ROM normal, straight leg raise negative bilaterally, pain with thoraco- lumbar ROM, paraspinal muscle tenderness on the right in the lower thoracic and in the upper lumbar, No thoracic spinal tenderness and No lumbar spinal t enderness Pelvis: no pain with anterior-posterior compression and no pain with lateral compression Sacroiliac joints: on the right tender to palpation Skin General skin exam: elasticity normal and turgor normal Neuro General: oriented to person, oriented to place, oriented to time, patient oriented x3, moves all extremities, no focal motor deficits and CN's II-XI intact bilaterally Cranial nerves: Yes Equal, round and reactive pupils present Cognition (Neuro): normal cognition Extrem General: Yes full ROM, Yes no pedal edema and Yes no calf tenderness Psych Mental Status: mental status grossly normal Affect: normal affect Thought process: Normal thought process present Medical Decision Making Medical Decision Making MDM Narrative: Patient is a 33-year-old male presenting to the ED with complaint of lower back pain ongoing for the past month and a half. On exam patient is awake, A+Ox3, VS WNL, afebrile, normal neurological exam without focal deficits, physical exam findings as above. Given reported symptoms and physical exam findings, initial differential includes lumbar strain, lumbar radiculopathy, degenerative disc disease, bulging disc or disc herniation, spinal stenosis, spondylosis. Less likely vertebral fracture. Do not suspect malignancy/mass, SEA, cauda equina/cord compression. X-ray notable for no acute fracture subluxation. My interpretation is in agreement with the radiologist's interpretation. Results discussed with patient and all questions answered. Advised patient that physical therapy would likely be helpful for his symptoms given ongoing nature and advised him to contact his PCP office to see if they can place a referral for physical therapy prior to his in-person office visit in June. Discussed reasons for which patient should return to the emergency department at bedside. Offered to prescribe prednisone, Flexeril, or topical lidocaine patches all of which patient declined stating he has adequate amounts of these medications at home. Patient verbalized understanding of and agreement with plan. Differential Diagnosis Differential Diagnoses: The differential diagnosis associated with the presentation includes As per mdm Independent Interpretation I performed an independent interpretation of an: Plain X-Ray Interpretation: No evidence of fracture, subluxation. Radiology Impression Discussion of test interpretation with radiology: I have reviewed the radiologist's reading. Radiologist Impression: XR/XR lumbar spine 2-3V IMPRESSION: Unremarkable examination. External Record Review External record reviewed: Inpatient record, Office record and Outpatient record Prescription Management I considered prescription management with: Other offered treatment with prednisone, flexeril, lidocaine patches all of which patient declined stating he has some at home. Discharge Plan Discharge Clinical Impression: Lower back pain Patient Disposition: Home, Self-Care Instructions: Chronic Back Pain (DC), Back Pain (ED) Additional Instructions: You were evaluated in the emergency department today for back pain. Your evaluation did not show signs of medical conditions requiring emergent intervention at this time. We recommended that you use ibuprofen or Tylenol per package directions every 6 hours as needed for pain. If necessary, you can alternate these medications so that you take one medication every 3 hours. For instance, at noon take ibuprofen, then at 3:00 p.m. take Tylenol, then at 6:00 p.m. take ibuprofen. You should contact your PCP office today to see if they can refer you to physical therapy while you are waiting for your appointment in June. Return to the emergency department if you experience worsening back pain, difficulty walking, fevers, numbness, tingling, incontinence, groin numbness or tingling, or any other concerning symptoms. Prescriptions: No Action prednisone 20 mg tablet 40 mg PO DAILY 10 Days Qty: 20 0RF acetaminophen [Tylenol Extra Strength] 500 mg tablet 500 mg PO Q6H PRN (Reason: fever or pain) Qty: 14 0RF meloxicam 15 mg tablet 15 mg PO DAILY Qty: 20 0RF methocarbamol 750 mg tablet 750 mg PO Q8H PRN (Reason: spasm) Qty: 20 0RF hydrocodone-acetaminophen 5-325 mg tablet 1 tab PO Q4-6H PRN (Reason: pain) Qty: 30 0RF Rx Instructions: Partial Fill upon patient request. acetaminophen [Tylenol] 325 mg capsule 325 mg PO Q4H PRN (Reason: pain) Qty: 30 0RF cyclobenzaprine 10 mg tablet 10 mg PO BEDTIME PRN (Reason: muscle spasm) Qty: 7 0RF lidocaine 5 % adhesive patch,medicated 1 patch topical DAILY PRN (Reason: pain) Qty: 15 0RF Rx Instructions: leave on most painful area for up to 12 hrs naproxen 500 mg tablet 500 mg PO BID Qty: 14 0RF Stand Alone Forms: Work/School Release Print Language: Estonian
[2024-05-13 13:57] VITALS: BP 132/60; PULSE 86; RESP 18; TEMP 36.7; O2SAT 96
== END 2024-05-13 13:57 | disposition home or self-care (01) ==
PROVIDERS: Emergency Provider Emergency Medicine
DX: M54.50 Low back pain, unspecified (principal); F17.200 Nicotine dependence, unspecified, uncomplicated; F12.90 Cannabis use, unspecified, uncomplicated
CPT/HCPCS: 72100; 99283; 99284

== ENCOUNTER 2024-06-09 16:30 | Outpatient (REF) | payer BC, SELFPAY ==
--- NOTE | ~2024-06-09 | CT_ITS ---
EXAMINATION: CT PELVIS WITHOUT CONTRAST CLINICAL INFORMATION: Right lower quadrant pain. 33-year-old male. COMPARISON: No prior available. TECHNIQUE: Helical scanning was performed with submillimeter collimation through the pelvis. Sagittal and coronal multiplanar 2-D reconstructions were obtained. This CT examination was performed using dose optimization techniques as appropriate, variously including the following: *Automated exposure control *Adjustment of mA and/or kV according to patient size (this includes techniques or standardized protocols for targeted exams where dose is matched to indication/reason for exam; i.e. extremities or head) *Use of iterative reconstruction technique DLP: 468 mGy-cm FINDINGS: Exam is somewhat limited due to lack of IV contrast. PELVIS: -A normal appendix is identified. There are no inflammatory changes. The imaged small bowel, colon, and rectum appear normal. The small bowel mesentery and sigmoid mesentery appear normal. -The urinary bladder and prostate have a normal appearance. -Small amount of fluid attenuation is seen in the right inguinal canal region, suggesting prior hernia repair. -No abnormal lymphadenopathy is present. No abnormal fluid collection is present. -Distal ureters are nondilated. -No free fluid. -Imaged pelvic girdle musculature appears normal. OSSEOUS STRUCTURES: -A mixed lytic and sclerotic bone lesion in the intertrochanteric right femur has benign characteristics and is almost certainly a benign enchondroma. -Osseous structures otherwise have a normal appearance. No arthritic changes evident. -Normal SI joints. Normal hip joints. -Mild disc space narrowing at L5-S1. Mild right facet changes result in [id number] right L5-S1 neural foraminal narrowing. CT/CT pelvis wo IV con IMPRESSION: 1. No acute findings in the pelvis. 2. Appendix is normal. 3. Probable old hernia repair right inguinal region. No recurrent hernias. 4. Benign enchondroma in the right intertrochanteric region. 5. Mild to moderate degenerative disc disease disease L5-S1 with mild to moderate right neural foraminal narrowing.
== END 2024-06-09 16:31 | disposition home or self-care (01) ==
LOC: HO.CT 16:30
PROVIDERS: Visit Provider Surgery
DX: R10.31 Right lower quadrant pain (principal)
CPT/HCPCS: 72192

== ENCOUNTER → 2024-06-09 16:32 | Outpatient (BNV) | payer BC, SELFPAY | PROVIDERS: Visit Provider Radiology Diagnostic Radiology | DX: R10.31 Right lower quadrant pain (principal) | CPT/HCPCS: 72192 ==

== ENCOUNTER 2024-07-05 06:42 | Emergency (ER) | payer BC, SELFPAY ==
--- NOTE | ~2024-07-05 | XR_ITS ---
EXAMINATION: XR KNEE, RIGHT CLINICAL INFORMATION: Knee pain COMPARISON: None available. TECHNIQUE: Four views of the right knee. FINDINGS: No fracture or joint effusion. Alignment is anatomic. Joint spaces are maintained. No arthritic deformity. No abnormal soft tissue calcification. XR/XR knee RT 4V IMPRESSION: Normal right knee.
[2024-07-05 06:52] VITALS: BP 105/66; PULSE 80; RESP 16; TEMP 36.7; O2SAT 98; BMI 23.8
--- NOTE | 2024-07-05 07:43 | ED_ITS ---
HPI - Extremity Injury (Lower) General Chief Complaint: Extremity Injury, Lower Stated Complaint: rt knee pain Time Seen by Provider: 07/05/24 07:31 Source: patient Mode of arrival: ambulatory Limitations: no limitations History of Present Illness ED Provider: DR. Verdin HPI Narrative: 33-year-old male came in for evaluation right knee pain for 4-5 days, patient declined any trauma or injury to the right knee, patient at work require frequent squattings and bendings, patient feels better when he keep his right knee straight, worse when he go upstairs and hears clicking in his right knee. No fever, no chills, no history of IV drug abuse, no history of infected joints Related Data Previous Rx's ?Medication ?Instructions ?Recorded acetaminophen 500 mg tablet 500 mg PO Q6H PRN fever or pain 03/03/23 (Tylenol Extra Strength) #14 tabs meloxicam 15 mg tablet 15 mg PO DAILY #20 tabs 03/17/23 methocarbamol 750 mg tablet 750 mg PO Q8H PRN spasm #20 tabs 03/17/23 hydrocodone 5 mg-acetaminophen 325 1 tab PO Q4-6H PRN pain #30 tabs 04/25/23 mg tablet acetaminophen 325 mg capsule 325 mg PO Q4H PRN pain #30 caps 04/05/24 (Tylenol) cyclobenzaprine 10 mg tablet 10 mg PO BEDTIME PRN muscle spasm 04/05/24 #7 tabs lidocaine 5 % topical patch 1 patch topical DAILY PRN pain #15 04/05/24 ea naproxen 500 mg tablet 500 mg PO BID #14 tabs 04/05/24 prednisone 20 mg tablet 40 mg (2 x 20 mg) PO DAILY 10 days 05/05/24 #20 tabs Allergies Allergy/AdvReac Type Severity Reaction Status Date / Time No Known Allergies Allergy Verified 07/05/24 06:54 [No Known Allergies*] Review of Systems Review of Systems: All other systems are reviewed and are negative Constitutional: Reports as per HPI and Reports no additional constitutional complaints Eyes: Reports as per HPI and Reports no additional eye complaints Reports system reviewed and no additional complaints, except as documented Cardiovascular: Reports as per HPI and Reports no additional cardiovascular complaints Respiratory: Reports as per HPI and Reports no additional respiratory complaints Gastrointestinal: Reports as per HPI and Reports no additional gastrointestinal complaints Genitourinary: Reports no additional female genitourinary complaints Musculoskeletal: Reports no additional musculoskeletal complaints Skin/Breast: Reports system reviewed and no additional complaints, except as docu Psychiatric: Reports no additional psychiatric complaints Endocrine: Reports no additional endocrine complaints Hematologic/Lymphatic: Reports no additional hematologic/lymphatic complaints Allergic/Immunologic: Reports no additional allergic/immunologic complaints Reports system reviewed and no additional complaints, except as documented and Reports Abnormal speech present [facility] Past Medical History Medical History Right groin pain Syncope Neck pain Smoker Back pain Surgical History Right inguinal hernia (04/25/23) Hx of hernia repair Social History Social History Alcohol intake: never Patient Tobacco Use Status: Current everyday Tobacco user Tobacco use type: Pipe Substance Use Type: Marijuana Advance Directives: No Advance Directives Information Provided: No Do you have a plan to hurt others: No Plan Physical Exam Vital Signs: Vital Signs: Last Vital Signs Temp 98.1 F 07/05/24 06:52 Pulse 80 07/05/24 06:52 Resp 16 07/05/24 06:52 BP 105/66 07/05/24 06:52 Pulse Ox 98 07/05/24 06:52 O2 Del Method Room Air 07/05/24 06:52 BMI result Body Mass Index 23.8 Vital signs have been reviewed and appear to be correct. Blood pressure elevated. Heart rate normal. Respiratory rate normal. Temperature normal. Oxygen saturation normal. Appearance: Alert. Oriented X3. No acute distress. Head: Normal external exam. Normocephalic. Atraumatic. No Dunham signs noted. No raccoon eyes noted Eyes: PERRLA. EOMI. Conjunctiva and sclera normal. Eyelids normal. ENT: TM's Normal. Pharynx normal. Uvula midline. Moist mucous membranes. No trismus noted. No drooling noted. No muffled voice noted. Neck: Normal inspection. Neck supple. FROM. No adenopathy. Thyroid Normal. No meningeal signs. No neck mass noted. CVS: Normal heart rate and rhythm. Heart sound normal. No murmurs noted. Pulses normal throughout. Respiratory: No respiratory distress. Painless inspiration. Breath sounds normal. No wheezes/rales/rhonchi noted. Chest nontender. No accessory muscle usage noted or decreased air movement noted. Abdomen: Soft and nontender. Bowel sounds normal in all 4 quadrants. No distention noted. No organomegaly noted. No visible injury noted. Back: No CVA tenderness. Full range of motion noted. Skin: Skin warm and dry. Normal skin color. Normal skin turgor. No rashes/lesions/lacerations noted. Extremities: Right knee exam: Full range of motion, mild tenderness over the medial aspect of the knee with no swelling or deformity, no step-off. Stable ligamentous exam. No redness, hotness, effusion or swelling of the right knee to indicate septic arthritis. Neuro: Oriented X 3. Cranial nerve exam: II-XII are grossly intact No motor deficit. No sensory deficit. Reflexes normal. Course Reevaluation(s) Reevaluation #1: Left knee arthralgia, ice, NSAIDs prn, immobilization, follow-up with ortho. Time: 07:46 Medical Decision Making Differential Diagnosis Differential Diagnoses: The differential diagnosis associated with the presentation includes (Right knee fracture, ligamentous injury, right knee contusion, right knee septic arthritis.) Admission/Observation Consideration of admission/observation: Escalation of care including admission/observation considered Independent Interpretation I performed an independent interpretation of an: Plain X-Ray (Right knee: No acute pathology) Radiology Impression Discussion of test interpretation with radiology: I have reviewed the radiologist's reading. Discharge Plan Discharge Clinical Impression: Ankle sprain and strain Patient Disposition: Home, Self-Care Instructions: Ankle Sprain (ED) Additional Instructions: Use right knee immobilization, ibuprofen 200 mg tablet every 6 hours if needed for pain, apply ice, follow-up with Dr. Davidson as instructed. Prescriptions: No Action prednisone 20 mg tablet 40 mg PO DAILY 10 Days Qty: 20 0RF acetaminophen [Tylenol Extra Strength] 500 mg tablet 500 mg PO Q6H PRN (Reason: fever or pain) Qty: 14 0RF meloxicam 15 mg tablet 15 mg PO DAILY Qty: 20 0RF methocarbamol 750 mg tablet 750 mg PO Q8H PRN (Reason: spasm) Qty: 20 0RF hydrocodone-acetaminophen 5-325 mg tablet 1 tab PO Q4-6H PRN (Reason: pain) Qty: 30 0RF Rx Instructions: Partial Fill upon patient request. acetaminophen [Tylenol] 325 mg capsule 325 mg PO Q4H PRN (Reason: pain) Qty: 30 0RF cyclobenzaprine 10 mg tablet 10 mg PO BEDTIME PRN (Reason: muscle spasm) Qty: 7 0RF lidocaine 5 % adhesive patch,medicated 1 patch topical DAILY PRN (Reason: pain) Qty: 15 0RF Rx Instructions: leave on most painful area for up to 12 hrs naproxen 500 mg tablet 500 mg PO BID Qty: 14 0RF Referrals: Seng Davidson MD [Physician] - Stand Alone Forms: Work/School Release Print Language: Citizen Of [place]
--- NOTE | 2024-07-05 10:07 | PC.NURSE ---
20 knee immobilizer applied to right knee. Tolerated procedure. Discharge home with plan to follow up with orthopedics (Dr. Davidson).
[2024-07-05 10:08] VITALS: BP 112/67; PULSE 72; RESP 16; TEMP 36.7; O2SAT 97
== END 2024-07-05 10:08 | disposition home or self-care (01) ==
PROVIDERS: Emergency Provider Emergency Medicine
DX: S83.91XA Sprain of unspecified site of right knee, initial encounter (principal); X50.9XXA Other and unspecified overexertion or strenuous movements or postures, initial encounter; M25.561 Pain in right knee; Z79.899 Other long term (current) drug therapy; F17.210 Nicotine dependence, cigarettes, uncomplicated; Y93.9 Activity, unspecified; Y92.9 Unspecified place or not applicable; Y99.9 Unspecified external cause status
CPT/HCPCS: 73564; 99282; 99283

== ENCOUNTER 2024-07-09 07:48 | Outpatient (AMB) | payer BC, SELFPAY ==
--- NOTE | 2024-07-09 08:10 | A.OFFPC_ITS ---
Vital Signs 07/09/24 08:15 Height 5 ft 8 in Weight 157 lb BMI 23.9 BP 110/64 Blood Pressure Location Lt brachial Position Sitting Respiration 12 Pulse 68 Pulse Source Pulse Oximeter Pulse Oximetry (%) 99 Oxygen Delivery Method Room Air Intake Visit Reasons: Establish care Intake Note: Patient is here to establish care, patient reports he's had recent imaging done, he has an appointment in 07/12 with ortho and 07/14 with general surg. [employer]icated [employer] Required: No Accompanied by: Self / Same As Patient Allergies No Known Allergies [No Known Allergies*] Allergy (Verified 07/09/24 08:19) Tobacco use date assessed: 07/09/24 Dental Screening Dental Screen Date: 07/09/24 Did you have a dental visit in the last 12 months?: No Did you have a dental problem in the last 6 months where you did not have access to dental care?: No Was dental information given to patient?: Patient has dentist HPI HPI Comments History of Present Illness Details The patient is a 33 year old male with a past medical history of musculoskeletal pain presenting to establish care Right knee: Last week was working and right knee starting bothering him and clicking Finger injuries: Thumb (x one month) & ring finger (4 day history of pain) Neck & low back intermittently flare Currently working at [employer] and lifting heavy objects but body more sore and painful predated this particular jobs History of bilateral hernia repair remotely. Right inguinal has been hurting. PHQ-9 positive. Patient feels that he is engaged in realism ROS see HPI PHYSICAL EXAM: GENERAL: Alert and oriented x 3. NAD EYES: EOMI. Anicteric. HENT: Moist mucous membranes. No scleral icterus. No cervical lymphadenopathy. LUNGS: Clear to auscultation bilaterally. CARDIOVASCULAR: Regular rate and rhythm. No murmur. No JVD. ABDOMEN: Soft, non-tender +bs EXTREMITIES: No edema. Non-tender. SKIN: No rashes or lesions. Warm. NEUROLOGIC: No focal neurological deficits. CN II-XII grossly intact PSYCHIATRIC: Cooperative. Appropriate mood and affect [facility] Medical History (Updated 07/09/24 @ 09:02 by Melissa Perez MD) Drug addiction IBS (irritable bowel syndrome) Right groin pain Syncope Neck pain Smoker Back pain Surgical History (Updated 07/09/24 @ 08:55 by Melissa Perez MD) [place] teeth extracted Right inguinal hernia (04/25/23) Hx of hernia repair Family History (Updated 07/09/24 @ 08:35 by Carito Jimenez CMA) Other Family history unknown Social History (Updated 07/09/24 @ 08:28 by Carito Jimenez CMA) Household Members: Spouse and Children [facility] Are you a primary director long term care to a significant other at home: No Do you presently have visiting nurse or other home services: No 75 years or older and lives alone: No Alcohol intake: current Alcohol intake frequency: holidays/special occasions only Alcohol type: wine Comment: Patient reports he drinks socially Patient Tobacco Use Status: Current everyday Tobacco user Tobacco use type: Cigarette and Pipe Years Smoked: Age 20 e-Cigarette/Vaping Use: Currently Using Substance Use Type: Marijuana and Caffiene Have you been hit, kicked, punched, or otherwise hurt by someone within the past year? If so, by whom?: No Do you feel safe in your current relationship?: Yes Is there a partner from a previous relationship who is making you feel unsafe now?: No Are you made to feel afraid or neglected: No service: No Current occupational status: employed Current occupation: [employer] Cognitive needs: Yes (Memory concerns) Hearing needs: No Vision needs: No Questionnaire PHQ-9 Over the last 2 weeks, how often have you been bothered by any of the following problems? 1. Little interest or pleasure in doing things: nearly every day 2. Feeling down, depressed, or hopeless: more than half the days 3. Trouble falling or staying asleep, or sleeping too much: several days 4. Feeling tired or having little energy: nearly every day 5. Poor appetite or overeating: nearly every day 6. Feeling bad about yourself - or that you are a failure or have let yourself or your family down: several days 7. Trouble concentrating on things, such as reading the newspaper or watching television: not at all 8. Moving or speaking so slowly that other people could have noticed. Or the opposite - being so fidgety or restless that you have been moving around a lot more than usual: not at all 9. Thoughts that you would be better off or of hurting yourself in some way: not at all Total score: 13 Depression Screening Interpretation: Positive (Lifestyle affected- Somewhat difficult ) Depression Screening Follow-up: Existing condition Depression Screening Done: Yes 71344 - PHQ-9 Billing: Yes Source: Developed by Drs. Dani Jordan, Stacy Eduardo, Stephen Schultz and colleagues, with an educational ave from [employer]. Thrive Questionnaire Date Thrive assessed: 07/09/24 I am a: Patient What is your living situation today?: I have a steady place to live Within the past 12 months, did the food you bought not last and you didn't have the money to get more?: Never true Within the past 12 months, did you worry whether your food would run out before you got money to buy more?: Never true Do you have trouble paying for medicines?: No Do you have trouble getting transportation to medical appointments?: No Do you have trouble paying your heating and electricity bill?: No Do you have trouble taking care of your child, family member or friend?: No Do you have trouble with day-to-day activities such as bathing, preparing meals, shopping, managing finances, etc.?: Yes Are you currently unemployed and looking for a job?: No Are you interested in more education?: Yes Please select the resources that you would like help with: Daily support Currently or been in a relationship where the following occur: No concerns reported THRIVE Score: 0 ITZEL-7 AMB Questionnaire ITZEL-7 Date ITZEL - 7 assessed: 07/09/24 Feeling nervous, anxious, or on edge: 3 = Nearly every day Not being able to stop or control worryin = More than half the days Worrying too much about different things: 3 = Nearly every day Trouble relaxin = Several days Being so restless that it is hard to sit still: 3 = Nearly every day Becoming easily annoyed or irritable: 1 = Several days Feeling afraid as if something awful might happen: 3 = Nearly every day Total ITZEL-7 score (0-4 normal; 5-9 mild; 10-14 moderate; 15-21 severe): 16 Source: Developed by Drs. Dani Jordan, Stacy Eduardo, Stephen Schultz and colleagues, with an educational ave from [employer]. ITZEL-7 Assessment Billing ITZEL-7 Assessment Tool: ITZEL-7 Assessment 95914 Physical exam (Primary Care) Vital Signs: Last Vital Signs Pulse 68 07/09/24 08:15 Resp 12 07/09/24 08:15 BP 110/64 07/09/24 08:15 Pulse Ox 99 07/09/24 08:15 Oxygen Delivery Method Room Air 07/09/24 08:15 BMI result Body Mass Index 23.9 Tobacco/Smoking Status: Tobacco use Status Tobacco use date assessed 07/09/24 07/09/24 08:29 Patient Tobacco Use Status Current everyday Tobacco 07/09/24 08:28 Tobacco use type Cigarette,Pipe 07/09/24 08:28 e-Cigarette/Vaping Use Currently Using 07/09/24 08:29 PHQ-9: PHQ-9 Score PHQ-9: Total score 13 07/09/24 08:31 Depression Screening Interpretation: Positive (Lifestyle affected- Somewhat difficult ) Depression Screening Follow-up: Existing condition Thrive Assessment: Date of Thrive Assessment Date Thrive assessed 07/09/24 07/09/24 08:29 Currently or been in a relationship where the following occur: No concerns reported Assessment and Plan Assessment & Plan (1) Encounter to establish care: Code(s): Z76.89 - Persons encountering health services in other specified circumstances Plan: 33 y/o presenting to establish care. Past medical, surgical, social, family history reviewed. Labs ordered (2) H/O bilateral inguinal hernia repair: Code(s): Z98.890 - Other specified postprocedural states; Z87.19 - Personal history of other diseases of the digestive system (3) Polyarthralgia: Code(s): M25.50 - Pain in unspecified joint Plan: Labs ordered Orders: Orders Lyme IgG/IgM w/reflex to WB Today M25.50 - Pain in unspecified joint, M35.3 - Polymyalgia rheumatica, Z13.220 - Encounter for screening for lipoid disorders Lipid Panel Today M25.50 - Pain in unspecified joint, M35.3 - Polymyalgia rheumatica, Z13.220 - Encounter for screening for lipoid disorders Complete Blood Count Auto Diff Today M25.50 - Pain in unspecified joint, M35.3 - Polymyalgia rheumatica, Z13.220 - Encounter for screening for lipoid disorders Comprehensive Met. Panel Today M25.50 - Pain in unspecified joint, M35.3 - Polymyalgia rheumatica, Z13.220 - Encounter for screening for lipoid disorders Erythrocyte Sedimentation Rate Today M25.50 - Pain in unspecified joint, M35.3 - Polymyalgia rheumatica, Z13.220 - Encounter for screening for lipoid disorders CRP High Sensitivity Today M25.50 - Pain in unspecified joint, M35.3 - Polymyalgia rheumatica, Z13.220 - Encounter for screening for lipoid disorders Rheumatoid Factor Today M25.50 - Pain in unspecified joint, M35.3 - Polymyalgia rheumatica, Z13.220 - Encounter for screening for lipoid disorders Cyclic Citrullinated Peptide Today M25.50 - Pain in unspecified joint, M35.3 - Polymyalgia rheumatica, Z13.220 - Encounter for screening for lipoid disorders Referrals Dermatology Referral D22.9 - Melanocytic nevi, unspecified Rheumatology Referral M25.50 - Pain in unspecified joint, M35.3 - Polymyalgia rheumatica Coding Level of Care Code New Pt Level 5 (71156) Complex EM visit Add On G2211 Diagnoses Encounter to establish care Z76.89 H/O bilateral inguinal hernia repair Z98.890; Z87.19 Polyarthralgia M25.50 Additional Codes ITZEL-7 Assessment Billing - ITZEL-7 Assessment Tool: ITZEL-7 Assessment 31582 ([id number])
[2024-07-09 08:15] VITALS: BP 110/64; PULSE 68; RESP 12; O2SAT 99; BMI 23.9
== END 2024-07-09 09:11 | disposition home or self-care (01) ==
PROVIDERS: PCP Internal Medicine; Visit Provider Internal Medicine
DX: M25.50 Pain in unspecified joint (principal); Z76.89 Persons encountering health services in other specified circumstances; Z98.890 Other specified postprocedural states; Z87.19 Personal history of other diseases of the digestive system
CPT/HCPCS: 99204

== ENCOUNTER 2024-07-09 09:11 | Outpatient (REF) | payer BC, SELFPAY ==
[2024-07-09 11:06] LABS: MANUAL DIFF FLAG NO
[2024-07-09 11:20] LABS: Basophils Percent Auto 0.3 % (0-2); Eosinophils Absolute Auto 0.1 X10*3/uL (0.0-0.4); Eosinophils Percent Auto 0.9 % (0-4); Hematocrit 46.4 % (42.0-52.0); Hemoglobin 15.2 g/dl (14.0-18.0); Imm Gran Abs Auto 0.03 X10*3/uL (0.00-0.03); Imm Gran Pct Auto 0.4 % (0.0-0.4); Lymphocytes Absolute Auto 1.7 X10*3/uL (1.2-4.9); Lymphocytes Percent Auto 25.9 % (20-40); Mean Corpuscular HGB Conc 32.8 g/dl (31.0-36.0); Mean Corpuscular Hemoglobin 30.1 pg (27.0-33.0); Mean Corpuscular Volume 91.9 fL (80.0-98.0); Mean Platelet Volume 10.7 fL (9.4-12.4); Monocytes Absolute Auto 0.8 X10*3/uL (0.1-1.2); Monocytes Percent Auto 11.2 % (2-11); Neutrophils Absolute Auto 4.1 x10*3/uL (2.0-8.3); Neutrophils Percent Auto 61.3 % (45-73); Platelet Count 191 X10*3/uL (160-400); Red Blood Count 5.05 X10*6/uL (4.60-5.80); Red Cell Distribution Width 12.3 % (11.0-16.0); White Blood Count 6.7 X10*3/uL (4.8-10.8)
[2024-07-09 11:37] LABS: Rheumatoid Factor < 13.0 IU/mL (<15.0)
[2024-07-09 12:04] LABS: Erythrocyte Sedimentation Rate 2 MM/HR (0-15)
[2024-07-09 12:08] LABS: Alanine Aminotransferase 27 U/L (0-40); Albumin Level 4.9 g/dL (3.5-5.0); Alkaline Phosphatase 65 U/L (39-117); Anion Gap 12 (12-20); Aspartate Amino Transferase 26 U/L (5-37); Blood Urea Nitrogen 18 mg/dL (9-16); Calcium 10.1 mg/dL (8.4-10.2); Carbon Dioxide 30 mmol/L (22-29); Chloride 106 mmol/L (96-108); Cholesterol 146 mg/dL (<200); Estimated Glomerular Filt Rate > 60; Glucose Random 88 mg/dL (60-115); HDL Cholesterol 54 mg/dL (>40); LDL Cholesterol Calculated 80 mg/dL (<100); Potassium 3.6 mmol/L (3.3-5.1); Sodium 144 mmol/L (135-145); Total Protein 7.8 g/dL (6.5-8.0); Triglycerides 62 mg/dL (<150)
[2024-07-13 01:09] LABS: Lyme Abs Screen <0.90 index
[2024-07-13 22:19] LABS: Cyclic Citrullinated Peptide <16 UNITS
== END 2024-07-09 09:12 | disposition home or self-care (01) ==
LOC: HO.WFDLDS 09:11
PROVIDERS: Visit Provider Internal Medicine
DX: M25.50 Pain in unspecified joint (principal); M35.3 Polymyalgia rheumatica; Z13.220 Encounter for screening for lipoid disorders
CPT/HCPCS: 36415; 80053; 80061; 85025; 85652; 86141; 86200; 86431; 86617; 86618

== ENCOUNTER 2024-07-12 13:05 | Outpatient (AMB) | payer BC, SELFPAY ==
--- NOTE | 2024-07-12 13:09 | MHC.OFFVIS ---
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 Pt states his knee pain started a few weeks ago with no known injury. Pt states the pain is in his knee and calf right now due to him not being able to walk correctly due to the pain. Pt states his ROM is limited. Pt states his knee gives out and can feel a crunching feeling. 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 He has not had any injury in the past. He states he has pain in his left knee and calf region that is making him unable to ambulate or use stairs. He also experiences limited ROM as well as crunching in his knee that frequently gives out. [facility] Medical History (Updated 07/12/24 @ 13:36 by Deepti Hernandez PA-C) Drug addiction IBS (irritable bowel syndrome) Right groin pain Syncope Neck pain Smoker Back pain Surgical History (Updated 07/09/24 @ 08:55 by Melissa Perez MD) [place] teeth extracted Right inguinal hernia (04/25/23) Hx of hernia repair Family History (Updated 07/09/24 @ 08:35 by Carito Jimenez CMA) Other Family history unknown Social History (Updated 07/09/24 @ 08:28 by Carito Jimenez CMA) Household Members: Spouse and Children Housing: Condominium Are you a primary post anesthesia care unit nurse to a significant other at home: No Do you presently have visiting nurse or other home services: No 75 years or older and lives alone: No Alcohol intake: current Alcohol intake frequency: holidays/special occasions only Alcohol type: wine Comment: Patient reports he drinks socially Patient Tobacco Use Status: Current everyday Tobacco user Tobacco use type: Cigarette and Pipe Years Smoked: Age 20 e-Cigarette/Vaping Use: Currently Using Substance Use Type: Marijuana and Caffiene service: No Current occupational status: employed Current occupation: [employer] Cognitive needs: Yes (Memory concerns) Hearing needs: No Vision needs: No Review of Systems Const All systems reviewed & are unremarkable except as noted in HPI and below Physical Exam Const General: cooperative, healthy appearing, comfortable, no acute distress, well developed and alert Orientation/consciousness: patient oriented x3 HEENT Head: Yes normal to inspection, Yes normocephalic and Yes atraumatic Eyes General: appearance normal, both eyes and all related structures Resp Effort & Inspection: normal respiratory effort and able to speak in complete sentences Cardio Rate: regular rate Peripheral pulses: Peripheral pulses 2+ throughout GI Palpation (GI): Soft to palpation Skin Lesions: no lesions Rashes: no rashes Neuro General: patient oriented x3 Extrem Other: Right knee: Skin intact, no erythema or joint effusion. Medial retropatellar tenderness present. Full ROM with crepitus. Negative Ashish?s. No ligamentous laxity. NVI. ?Med retropat tenderness Results Reviewed Results Reviewed: xrays of the right knee obtained on 07/05 show no fracture or dislocations. Assessment & Plan Assessment & Plan (1) Patellofemoral arthralgia of right knee: Code(s): M25.561 - Pain in right knee Category: Medical Plan We discussed options which include PT, NSAIDs and injections. The patient will defer on the injection today and proceed with PT and NSAIDs. He was also fit for a knee brace. If symptoms persist, she will contact me for an injection, otherwise, PRN. Orders: Orders PT Evaluation and Treatment Today M25.561 - Pain in right knee Patient Instructions: Scribed for Deepti Hernandez PA-C, by Tito Barreto medical technologist prn, on 07/12/2024 at 1:15 PM EST.? I, Deepti Hernandez PA-C, have personally reviewed and agree with the information entered by the scribe. Coding Level of Care Code New Pt Level 3 (34519) Diagnoses Patellofemoral arthralgia of right knee M25.561
== END 2024-07-12 13:40 | disposition home or self-care (01) ==
PROVIDERS: Visit Provider Physician Assistant
DX: M25.561 Pain in right knee (principal)
CPT/HCPCS: 99203

== ENCOUNTER → 2024-07-12 13:05 | Outpatient (BNVA) | payer BC, SELFPAY | PROVIDERS: Visit Provider Physician Assistant ==

== ENCOUNTER 2024-07-16 10:57 | Outpatient (AMB) | payer BC, SELFPAY ==
--- NOTE | 2024-07-16 10:55 | MHC.PC.OV ---
Intake Visit Reasons: labs Allergies No Known Allergies [No Known Allergies*] Allergy (Verified 07/12/24 13:09) Tobacco use date assessed: 07/09/24 Dental Screening Dental Screen Date: 07/09/24 HPI HPI Comments History of Present Illness Details The patient is a 33 year old male with a past medical history of musculoskeletal pain presenting for follow up last visit with c/o Right knee: Last week was working and right knee starting bothering him and clicking Finger injuries: Thumb (x one month) & ring finger (4 day history of pain) Neck & low back intermittently flare Currently working at [employer] and lifting heavy objects but body more sore and painful predated this particular jobs Patient referred to rheumatology. Visit pending. Labs normal History of bilateral hernia repair remotely. Right inguinal has been hurting. Referral was placed to gen surgery and appt scheduled PHQ-9 positive. Patient feels that he is engaged in realism ROS see HPI PHYSICAL EXAM: Telehealth [facility] Medical History Drug addiction IBS (irritable bowel syndrome) Right groin pain Syncope Neck pain Smoker Back pain Surgical History [place] teeth extracted Right inguinal hernia (04/25/23) Hx of hernia repair Family History Other Family history unknown Social History Household Members: Spouse and Children [facility] Are you a primary patient care representative to a significant other at home: No Do you presently have visiting nurse or other home services: No 75 years or older and lives alone: No Alcohol intake: current Alcohol intake frequency: holidays/special occasions only Alcohol type: wine Comment: Patient reports he drinks socially Patient Tobacco Use Status: Current everyday Tobacco user Tobacco use type: Cigarette and Pipe Years Smoked: Age 20 e-Cigarette/Vaping Use: Currently Using Substance Use Type: Marijuana and Caffiene service: No Current occupational status: employed Current occupation: [employer] Cognitive needs: Yes (Memory concerns) Hearing needs: No Vision needs: No Questionnaire Thrive Questionnaire Date Thrive assessed: 07/09/24 ITZEL-7 AMB Questionnaire ITZEL-7 Date ITZEL - 7 assessed: 07/09/24 Source: Developed by Drs. Dani Jordan, Stacy Eduardo, Stephen Schultz and colleagues, with an educational ave from [employer]. Physical exam (Primary Care) Tobacco/Smoking Status: Tobacco use Status Tobacco use date assessed 07/09/24 07/09/24 08:29 Patient Tobacco Use Status Current everyday Tobacco 07/09/24 08:28 Tobacco use type Cigarette,Pipe 07/09/24 08:28 e-Cigarette/Vaping Use Currently Using 07/09/24 08:29 Thrive Assessment: Date of Thrive Assessment Date Thrive assessed 07/09/24 07/09/24 08:29 Telehealth Telehealth Telehealth Platform: Telephone Location of provider rendering services: practice address Location of patient: address on file Patient Identification confirmed using: Name, : Yes Telehealth method: voice only Patient verbally consented to treatment: Yes Patient verbally consented to billing insurance company: Yes Patient informed of any privacy concerns related to visit: Yes Minutes spent on Phone/Video with Pt.: 22 Coding Level of Care Code Tele Est Pt Level 3 (12996)
== END 2024-07-16 11:11 | disposition home or self-care (01) ==
LOC: HO.HMGFM 10:57
PROVIDERS: PCP Internal Medicine; Visit Provider Internal Medicine
DX: M25.561 Pain in right knee (principal); M25.562 Pain in left knee
CPT/HCPCS: 99443

== ENCOUNTER 2024-12-07 14:29 | Outpatient (AMB) | payer BC, SELFPAY ==
--- NOTE | 2024-12-07 14:46 | MHC.PC.OV ---
Vital Signs 12/07/24 14:53 Height 5 ft 8 in Weight 155 lb 2 oz BMI 23.6 BP 124/64 Blood Pressure Location Lt brachial Position Sitting Pulse 60 Pulse Source Pulse Oximeter Pulse Oximetry (%) 99 Oxygen Delivery Method Room Air Intake Visit Reasons: PE Intake Note: Physical. Right thumb pain. Powerhouse Tender Required: No Allergies No Known Allergies [No Known Allergies*] Allergy (Verified 12/07/24 14:48) Tobacco use date assessed: 12/07/24 Dental Screening Dental Screen Date: 07/09/24 HPI HPI Comments History of Present Illness Details Patient is a 34 year old male with a past medical history of musculoskeletal pain presenting for follow up Chronic complaints of Bilateral knee pain: Saw ortho. May go back and consider injection Finger injuries: Right thumb pain, cant flex x 6 months Neck & low back intermittently flare: stable Currently working at [employer] and lifting heavy objects but body more sore and painful predated this particular jobs History of bilateral hernia repair remotely. Right inguinal has been hurting. Referral was placed to gen surgery and appt scheduled PHQ-9 positive. Patient feels that he is engaged in realism ROS CONSTITUTIONAL: Denies weight loss, fever and chills. HEENT: Denies changes in vision and hearing. RESPIRATORY: Denies SOB and cough. CV: Denies palpitations and CP GI: Denies abdominal pain, nausea, vomiting and diarrhea. : Denies dysuria and urinary frequency. MSK: Denies new myalgia and joint pain. SKIN: Denies rash and pruritus. NEUROLOGICAL: Denies headache PSYCHIATRIC: Denies recent changes in mood. PHYSICAL EXAM: GENERAL: Alert and oriented x 3. NAD EYES: EOMI. Anicteric. HENT: Moist mucous membranes. No scleral icterus. No cervical lymphadenopathy. LUNGS: Clear to auscultation bilaterally. CARDIOVASCULAR: Regular rate and rhythm. No murmur. No JVD. ABDOMEN: Soft, non-tender +bs EXTREMITIES: No edema. Non-tender. SKIN: No rashes or lesions. Warm. NEUROLOGIC: No focal neurological deficits. CN II-XII grossly intact PSYCHIATRIC: Cooperative. Appropriate mood and affect [facility] Medical History Drug addiction IBS (irritable bowel syndrome) Right groin pain Syncope Neck pain Smoker Back pain Surgical History [place] teeth extracted Right inguinal hernia (04/25/23) Hx of hernia repair Family History Other Family history unknown Social History Household Members: Spouse and Children [facility] Are you a primary acute care physical therapist to a significant other at home: No Do you presently have visiting nurse or other home services: No 75 years or older and lives alone: No Alcohol intake: current Alcohol intake frequency: holidays/special occasions only Alcohol type: wine Comment: Patient reports he drinks socially. Occasionally Patient Tobacco Use Status: Former Tobacco user Tobacco use type: Cigarette and Pipe Years Smoked: Age 20 e-Cigarette/Vaping Use: Currently Using Substance Use Type: Marijuana and Caffiene service: No Current occupational status: employed Current occupation: [employer] Cognitive needs: Yes (Memory concerns) Hearing needs: No Vision needs: No Questionnaire PHQ-9 Over the last 2 weeks, how often have you been bothered by any of the following problems? 1. Little interest or pleasure in doing things: several days 2. Feeling down, depressed, or hopeless: several days 3. Trouble falling or staying asleep, or sleeping too much: not at all 4. Feeling tired or having little energy: nearly every day 5. Poor appetite or overeating: nearly every day 6. Feeling bad about yourself - or that you are a failure or have let yourself or your family down: not at all 7. Trouble concentrating on things, such as reading the newspaper or watching television: not at all 8. Moving or speaking so slowly that other people could have noticed. Or the opposite - being so fidgety or restless that you have been moving around a lot more than usual: not at all 9. Thoughts that you would be better off or of hurting yourself in some way: not at all Total score: 8 Depression Screening Interpretation: Positive Depression Screening Done: Yes 81969 - PHQ-9 Billing: Yes Source: Developed by Drs. Dani Jordan, Stacy Eduardo, Stephen Schultz and colleagues, with an educational ave from [employer]. Thrive Questionnaire Date Thrive assessed: 12/07/24 I am a: Patient What is your living situation today?: I have a steady place to live Within the past 12 months, did the food you bought not last and you didn't have the money to get more?: Sometimes True Within the past 12 months, did you worry whether your food would run out before you got money to buy more?: Never true Do you have trouble paying for medicines?: No Do you have trouble getting transportation to medical appointments?: No Do you have trouble paying your heating and electricity bill?: No Do you have trouble taking care of your child, family member or friend?: No Do you have trouble with day-to-day activities such as bathing, preparing meals, shopping, managing finances, etc.?: Yes Are you currently unemployed and looking for a job?: No Are you interested in more education?: No Please select the resources that you would like help with: None THRIVE Score: 1 ITZEL-7 AMB Questionnaire ITZEL-7 Date ITZEL - 7 assessed: 07/09/24 Source: Developed by Drs. Dani Jordan, Stacy Eduardo, Stephen Schultz and colleagues, with an educational ave from [employer]. Physical exam (Primary Care) Vital Signs: Last Vital Signs Pulse 60 12/07/24 14:53 BP 124/64 12/07/24 14:53 Pulse Ox 99 12/07/24 14:53 Oxygen Delivery Method Room Air 12/07/24 14:53 BMI result Body Mass Index 23.6 Tobacco/Smoking Status: Tobacco use Status Tobacco use date assessed 12/07/24 12/07/24 14:52 Patient Tobacco Use Status Former Tobacco user 12/07/24 14:52 Tobacco use type Cigarette,Pipe 12/07/24 14:52 e-Cigarette/Vaping Use Currently Using 12/07/24 14:52 PHQ-9: PHQ-9 Score PHQ-9: Total score 8 12/07/24 14:52 Depression Screening Interpretation: Positive Thrive Assessment: Date of Thrive Assessment Date Thrive assessed 12/07/24 12/07/24 14:52 Coding Level of Care Code Est Pt Level 4 (59802) Diagnoses Right hand pain M79.641 Patellofemoral arthralgia of right knee M25.561 Polyarthralgia M25.50 Additional Codes PHQ-9 - 71934 - PHQ-9 Billing: Yes ([id number]) Assessment & Plan Assessment & Plan (1) Right hand pain: Code(s): M79.641 - Pain in right hand Category: Medical (2) Patellofemoral arthralgia of right knee: Code(s): M25.561 - Pain in right knee Category: Medical (3) Polyarthralgia: Code(s): M25.50 - Pain in unspecified joint Category: Medical Plan Thumb pain: referral to hand. xray ordered Apply voltaren as needed. Orders: Orders XR hand RT min 3V Today M35.3 - Polymyalgia rheumatica Referrals Hand Surgery Referral M79.641 - Pain in right hand Medications: New diclofenac sodium 1% (Voltaren Arthritis Pain) apply to single elbow, wrist or hand; for hand includes palm/fingers/back of hand 2 grams topical QID 100 grams 0RF
[2024-12-07 14:53] VITALS: BP 124/64; PULSE 60; O2SAT 99; BMI 23.6
== END 2024-12-07 15:19 | disposition home or self-care (01) ==
PROVIDERS: PCP Internal Medicine; Visit Provider Internal Medicine
DX: M79.641 Pain in right hand (principal); M25.561 Pain in right knee; M25.50 Pain in unspecified joint

== ENCOUNTER → 2024-12-07 14:29 | Outpatient (BNVA) | payer BC, SELFPAY | PROVIDERS: PCP Internal Medicine; Visit Provider Internal Medicine | DX: M79.641 Pain in right hand (principal); M25.561 Pain in right knee; M25.50 Pain in unspecified joint | CPT/HCPCS: 96127 ==

== ENCOUNTER 2025-02-21 06:13 | Emergency (ER) | payer BC, SELFPAY ==
--- NOTE | ~2025-02-21 | XR_ITS ---
CLINICAL HISTORY: pain 4 views cervical spine Comparison: None Findings: Normal alignment. No acute fractures or dislocation. No significant degenerative change. Prevertebral soft tissues within normal limits. IMPRESSION: No acute findings. This document has been electronically signed by: Demetrio Lane MD on 02/21/2025 07:10:13
[2025-02-21 06:21] VITALS: BP 120/66; PULSE 58; RESP 16; TEMP 36.8; O2SAT 58; BMI 23.5
--- NOTE | 2025-02-21 06:49 | ED_ITS ---
HPI - Neck Pain/Injury General Chief Complaint: Neck Pain/Injury Stated Complaint: neck pain Time Seen by Provider: 02/21/25 06:43 Source: patient Mode of arrival: ambulatory Limitations: no limitations History of Present Illness ED Provider: Dr. Eugenie Morin HPI Narrative: Patient comes to the emergency room complaining of right-sided neck pain. Patient states that it has been a week, according to the patient it hurts rotating his neck. However, patient states that his gave him a massage in the neck and now he feels much better. Patient denies any trouble flexing or extending the neck. It is mostly with rotation. Denies any injury. Related Data Home Medications ?Medication ?Instructions ?Recorded ?Confirmed prednisone PO 12/07/24 Previous Rx's ?Medication ?Instructions ?Recorded naproxen 500 mg tablet 500 mg PO BID #14 tabs 04/05/24 diclofenac sodium 1 % topical gel 2 g topical QID #100 grams 12/07/24 (Voltaren Arthritis Pain) cyclobenzaprine 10 mg tablet 10 mg PO BEDTIME PRN muscle spasm 02/21/25 #7 tabs Allergies Allergy/AdvReac Type Severity Reaction Status Date / Time No Known Allergies Allergy Verified 02/21/25 06:22 [No Known Allergies*] Review of Systems Review of Systems: Constitutional : No Weight loss, No Fever, No Chills, No Night Sweats, No Fatigue, No Malaise ENT/Mouth : No Hearing loss, No Ear Pain, No Nasal Congestion, No Sinus Pain, No Hoarseness, No sore throat, No Rhinorrhea, No Swallowing Difficulty Eyes: No Eye Pain, No Swelling, No Redness, No Foreign Body, No Discharge, No Vision Changes Cardiovascular : No Chest Pain, No SOB, No Dyspnea on Exertion, No Orthopnea, No Edema, No Palpitations Respiratory : No Cough, No Sputum, No Wheezing, No Smoke Exposure, No Dyspnea Gastrointestinal : No Nausea, No Vomiting, No Diarrhea, No Constipation, No abdominal Pain, No Hematochezia, No Melena Genitourinary : no irregular bleeding, No Dysuria, No Urinary Frequency, No Hematuria, No Urinary Incontinence, No Urgency, No Flank Pain, No Urinary Flow Changes, No Hesitancy Musculoskeletal : Complaining of right-sided neck pain that improved with a massage, No joint pain, No Myalgias, No Joint Swelling Skin : No Skin Lesions, No rash Neuro : No Weakness, No Numbness, No Paresthesias, No Loss of Consciousness, No Dizziness, No Headache Psych : No Anxiety/Panic, No Depression, No SI/HI/AH/VH, No Social Issues, Heme/Lymph: No Bruising, No Bleeding,No Lymphadenopathy Endocrine : No Polyuria, No Polydipsia, No Temperature Intolerance [facility] Past Medical History Medical History Drug addiction IBS (irritable bowel syndrome) Right groin pain Syncope Neck pain Smoker Back pain Surgical History [place] teeth extracted Right inguinal hernia (04/25/23) Hx of hernia repair Family History Family History Other Family history unknown Social History Social History Household Members: Spouse and Children Housing: [facility] Are you a primary health care facilities inspector to a significant other at home: No Do you presently have visiting nurse or other home services: No Alcohol intake: current Alcohol intake frequency: holidays/special occasions only Alcohol type: wine Comment: Patient reports he drinks socially. Occasionally Patient Tobacco Use Status: Former Tobacco user Tobacco use type: Cigarette and Pipe Years Smoked: Age 20 e-Cigarette/Vaping Use: Currently Using Substance Use Type: Marijuana and Caffiene Advance Directives: No Advance Directives Information Provided: Yes Do you have a plan to hurt others: No Plan service: No Current occupational status: employed Current occupation: [employer] Cognitive needs: Yes (Memory concerns) Hearing needs: No Vision needs: No Physical Exam Vital Signs: Vital Signs: Last Vital Signs Temp 98.2 F 02/21/25 06:21 Pulse 58 02/21/25 06:21 Resp 16 02/21/25 06:21 BP 120/66 02/21/25 06:21 Pulse Ox 58 L 02/21/25 06:21 O2 Del Method Room Air 02/21/25 06:21 BMI result Body Mass Index 23.5 Const: Other: Appearance: Alert. Oriented X3. No acute distress. Eyes: Pupils equal, round and reactive to light. ENT: Pharynx normal. Neck: Normal inspection. Neck supple. No lymph nodes noted. No crepitus palpable muscle spasms on the right side of the neck over the sternocleidomastoid, no C-spine tenderness or palpable step-offs CVS: Normal heart rate and rhythm. Pulses normal. Normal S1 and S2 Respiratory: No respiratory distress. Breath sounds normal. No Wheezing. No rales Abdomen: Soft and nontender. No rigidity. No distention. Skin: Skin warm and dry. Normal skin color. Normal skin turgor. Extremities: No lower extremity edema. No Lacerations. No Rash Neuro: Oriented X 3. No motor deficit. No sensory deficit. Moving all extremities. No slurred speech. CN 2 through 12 grossly intact Psych: calm, cooperative, normal affect Medical Decision Making Medical Decision Making MDM Narrative: My interpretation of C-spine: No obvious deformity no mass alignment, radiology report pending I discussed the physical exam with the patient and his , pain likely torticollis, musculoskeletal pain. Patient declined IM pain medication. Patient states that he is taking naproxen at home. Differential Diagnosis Differential Diagnoses: The differential diagnosis associated with the presentation includes (Musculoskeletal pain, diverticulitis, spasms) Independent Interpretation I performed an independent interpretation of an: Plain X-Ray Discharge Plan Discharge Clinical Impression: Muscle spasms of neck Patient Disposition: Home, Self-Care Instructions: Muscle Spasm (ED) Additional Instructions: Please follow-up with your primary care physician tomorrow. If you have any worsening or new symptoms, please return to the emergency room or call 911 Prescriptions: New cyclobenzaprine 10 mg tablet 10 mg PO BEDTIME PRN (Reason: muscle spasm) Qty: 7 0RF No Action naproxen 500 mg tablet 500 mg PO BID Qty: 14 0RF prednisone PO diclofenac sodium [Voltaren Arthritis Pain] 1 % gel 2 g topical QID Qty: 100 0RF Rx Instructions: apply to single elbow, wrist or hand; for hand includes palm/fingers/back of hand Stand Alone Forms: Work/School Release Print Language: Bahraini
[2025-02-21 07:06] VITALS: BP 120/66; PULSE 58; RESP 16; TEMP 36.8; O2SAT 58
== END 2025-02-21 07:07 | disposition home or self-care (01) ==
PROVIDERS: Emergency Provider Emergency Medicine; PCP Internal Medicine
DX: M54.2 Cervicalgia (principal); M62.830 Muscle spasm of back; Z87.891 Personal history of nicotine dependence; Z79.899 Other long term (current) drug therapy
CPT/HCPCS: 72040; 99282; 99283

== ENCOUNTER → 2025-02-21 06:30 | Outpatient (BNV) | payer BC, SELFPAY | PROVIDERS: Emergency Provider Emergency Medicine; PCP Internal Medicine; Visit Provider Specialist | DX: M54.2 Cervicalgia (principal) | CPT/HCPCS: 72040 ==

== ENCOUNTER 2025-04-19 15:21 | Outpatient (AMB) | payer BC, SELFPAY ==
--- NOTE | 2025-04-19 15:25 | MHC.OFFVIS ---
Vital Signs 04/19/25 15:35 Height 5 ft 8 in Weight 156 lb BMI 23.7 BP 113/58 L Blood Pressure Location Lt brachial Position Sitting Pulse 86 Intake Visit Reasons: hernia site pain Intake Note: Patient of Dr Fox is seen in office for wound check, post right inguinal hernia repair on 04/25/23. Pt c/o: admits to feeling a lump in the right groin, very painful to the touch, even when pants is rubbing against it, denies any other concerns CT:06/09/[address] Cifuentes:04/22/24 Fumigator And Sterilizer Required: No Accompanied by: Self / Same As Patient Allergies No Known Allergies [No Known Allergies*] Allergy (Verified 04/19/25 15:33) Medication List - Last Reconciled 04/21/25 by Chuy Jorgensen MD cyclobenzaprine 10 mg PO BEDTIME PRN diclofenac sodium 1% (Voltaren Arthritis Pain) 2 grams topical QID naproxen 500 mg PO BID prednisone PO HPI Comments Details: 34-year-old male patient returning to the office for evaluation of pain in the right groin. He is status post repair of a right inguinal hernia by Dr. Fox on 04/25/2023. He now notes a palpable lump at the site of his incision which with palpation causes some discomfort. He denies any redness or discharge from the incision. He denies nausea, vomiting, fever or chills. There has been no bowel changes as well. Previous CT of the pelvis ordered by Dr. Cifuentes revealed no evidence of hernia recurrence at that time. The pain could be felt either with standing, sitting or changes of position. [facility] Medical History Drug addiction IBS (irritable bowel syndrome) Right groin pain Syncope Neck pain Smoker Back pain Surgical History [place] teeth extracted Right inguinal hernia (04/25/23) Hx of hernia repair Family History Other Family history unknown Social History Household Members: Spouse and Children [facility] Are you a primary sub acute care nurse to a significant other at home: No Do you presently have visiting nurse or other home services: No Alcohol intake: current Alcohol intake frequency: holidays/special occasions only Alcohol type: wine Comment: Patient reports he drinks socially. Occasionally Patient Tobacco Use Status: Former Tobacco user Tobacco use type: Cigarette and Pipe Years Smoked: Age 20 e-Cigarette/Vaping Use: Currently Using Substance Use Type: Marijuana and Caffiene service: No Current occupational status: employed Current occupation: [employer] Cognitive needs: Yes (Memory concerns) Hearing needs: No Vision needs: No Review of Systems Const All systems reviewed & are unremarkable except as noted in HPI and below Physical Exam Vital Signs: Last Vital Signs Pulse 86 04/19/25 15:35 BP 113/58 L 04/19/25 15:35 BMI result Body Mass Index 23.7 Const General: no acute distress Nutritional Appearance: thin Orientation/consciousness: patient oriented x3 Limitations: no limitations Resp Effort & Inspection: normal respiratory effort, no audible wheezes, no cough and no respiratory distress GI Other: Thin abdominal wall with palpable plug mesh noted in the mid incision at the approximately the internal ring location. No changes are noted with Valsalva maneuvers. There is tenderness to palpation of the incision. Redness or other evidence of infection are identified. No scrotal swelling is identified. Inspection: Yes normal to inspection Palpation (GI): Soft to palpation, Tenderness to palpation present (GI) (Right groin at inguinal incision) and no hernias Abdomen image: 1. Site of palpable plug Neuro General: patient oriented x3 Extrem General: Yes normal to inspection and No edema Assessment & Plan Assessment & Plan (1) Right inguinal hernia: Onset Date: 04/25/23 Comment: Dr. Robbin Fox Code(s): K40.90 - Unilateral inguinal hernia, without obstruction or gangrene, not specified as recurrent Category: Surgical (2) Right groin pain: Code(s): R10.31 - Right lower quadrant pain Category: Medical Plan 34-year-old male patient with a prior history of a right inguinal hernia using a plug type repair now presenting with a palpable mesh plug in the mid incision at approximately the level of the internal ring. There is tenderness with palpation but no evidence of a recurrent hernia my examination. I recommended further evaluation with a CT of the pelvis which was requested today. We discussed the possibility of trimming the mesh so it is not protruding verses pain management evaluation. He was not interested in either options. I will call him with the results of the CT once available. Orders: Orders CT abdomen pelvis wo IV con 04/19/25 K40.90 - Unilateral inguinal hernia, without obstruction or gangrene, not specified as recurrent, R10.31 - Right lower quadrant pain, Z87.19 - Personal history of other diseases of the digestive system, Z98.890 - Other specified postprocedural states Coding Level of Care Code Est Pt Level 3 (50714) Diagnoses Right inguinal hernia K40.90 Right groin pain R10.31
[2025-04-19 15:35] VITALS: BP 113/58; PULSE 86; BMI 23.7
== END 2025-04-19 15:49 | disposition home or self-care (01) ==
LOC: HO.HGS 15:22
PROVIDERS: PCP Internal Medicine; Visit Provider Surgery
DX: K40.90 Unilateral inguinal hernia, without obstruction or gangrene, not specified as recurrent (principal); R10.31 Right lower quadrant pain
CPT/HCPCS: 99213

== ENCOUNTER → 2025-04-19 15:21 | Outpatient (BNVA) | payer BC, SELFPAY | PROVIDERS: PCP Internal Medicine; Visit Provider Surgery ==

== ENCOUNTER 2025-06-28 16:35 | Outpatient (REF) | payer BC, SELFPAY ==
--- NOTE | ~2025-06-28 | CT_ITS ---
CLINICAL HISTORY: R10.31 - Right lower quadrant pain --- Additional Notes or Special Instructions: Pain right groin following hernia repair in 2022 Exam: CT abdomen and pelvis without IV contrast Comparison: None provided Findings: The lack of intravenous contrast hampers the evaluation of solid organs and the ability to detect and characterize soft tissue abnormalities. 6 mm triangular-shaped pulmonary nodule left lower lobe on series 4, image 127. No urolithiasis or obstructive uropathy. Liver, spleen, pancreas, adrenal glands, kidneys, bladder and reproductive organs are unremarkable. Too small to characterize hypodensity right inferior hepatic lobe. Contracted gallbladder, limiting evaluation, no acute inflammation. Stomach is markedly distended with food debris, no gastric wall thickening. Small bowel, large bowel and appendix are unremarkable. Prominent inspissated stool in the ascending colon. Unremarkable vasculature, no adenopathy, ascites or pneumoperitoneum. Unremarkable abdominopelvic wall and osseous structures. Impression: 1. No acute finding. Probable constipation. 2. Markedly distended stomach, could be related to recent large meal or gastroparesis, please correlate clinically. 3. Left lower lobe 6 mm pulmonary nodule with benign triangular morphology. [employer] society recommendations do not apply to individuals less than 35 years of age. Follow-up as clinically indicated. This document has been electronically signed by: Julee Alcantara MD on 06/29/2025 16:54:18
== END 2025-06-28 16:36 | disposition home or self-care (01) ==
LOC: HO.CT 16:35
PROVIDERS: Absent Provider Internal Medicine; PCP Internal Medicine; Visit Provider Surgery
DX: R10.31 Right lower quadrant pain (principal); K40.90 Unilateral inguinal hernia, without obstruction or gangrene, not specified as recurrent; Z98.890 Other specified postprocedural states; Z87.19 Personal history of other diseases of the digestive system
CPT/HCPCS: 74176

== ENCOUNTER → 2025-06-28 16:37 | Outpatient (BNV) | payer BC, SELFPAY | PROVIDERS: Absent Provider Internal Medicine; PCP Internal Medicine; Visit Provider Radiology Diagnostic Radiology | DX: R10.31 Right lower quadrant pain (principal) | CPT/HCPCS: 74176 ==

== ENCOUNTER 2025-07-10 19:15 | Emergency (ER) | payer BC, SELFPAY ==
[2025-07-10] VITALS (7 sets, daily range): BP systolic 101–129; BP diastolic 48–66; PULSE 51–89; RESP 16–20; TEMP 36.6–37.1; O2SAT 95–96; BMI 22.6
--- NOTE | ~2025-07-10 | CT_ITS ---
CLINICAL HISTORY: syncope, head strike CT head without contrast Comparison: None provided Findings: No intra-axial mass, midline shift, hydrocephalus, or acute hemorrhage. No significant atrophy-like change or white matter disease. The visualized paranasal sinuses and mastoid air cells are normal. The orbits are within normal limits. No skull fracture. IMPRESSION: 1. No acute intracranial findings. This document has been electronically signed by: Raven Rosales MD on 07/10/2025 21:36:13
--- NOTE | 2025-07-10 19:19 | ED.GENADULT ---
HPI - General Adult General Chief complaint: Syncope Stated complaint: fainted twice, hit head on way down Time Seen by Provider: 07/10/25 21:44 Source: patient and family Mode of arrival: ambulatory Limitations: no limitations History of Present Illness ED Provider: Dr. Tere Taylor HPI narrative: 34-year-old male with a history of vasovagal syncope presenting after a syncopal episode that occurred at home. Patient's spouse provide most of the history. States that he bit his tongue during dinner tonight, got up from the table and then began to feel dizzy, falling backward and hitting his head on the computer chair. She was able to get him up to go to the bathroom however, by the time he arrived in the bathroom, his heart began to race and he passed out again. He was ambulatory into the emergency department without assistance. Admits that this is not the 1st time he has passed out at the sight of his own blood. Admits this has happened to him multiple times before. Describes slight headache but no numbness/tingling/weakness of the extremities. No posterior neck pain. No vision changes. Denies chest pain or difficulty breathing. Had been feeling well prior to the event. Related Data Home Medications ?Medication ?Instructions ?Recorded ?Confirmed prednisone PO 12/07/24 04/21/25 Previous Rx's ?Medication ?Instructions ?Recorded naproxen 500 mg tablet 500 mg PO BID #14 tabs 04/05/24 diclofenac sodium 1 % topical gel 2 g topical QID #100 grams 12/07/24 (Voltaren Arthritis Pain) cyclobenzaprine 10 mg tablet 10 mg PO BEDTIME PRN muscle spasm 02/21/25 #7 tabs Allergies Allergy/AdvReac Type Severity Reaction Status Date / Time No Known Allergies (No Known Allergy Verified 07/10/25 19:24 Allergies*) Review of Systems Review of Systems: As per HPI, full review of systems performed and negative but for the above mentioned pertinent positives and negatives. [facility] Past Medical History Medical History Drug addiction IBS (irritable bowel syndrome) Right groin pain Syncope Neck pain Smoker Back pain Surgical History [place] teeth extracted Right inguinal hernia (04/25/23) Hx of hernia repair Family History Family History Other Family history unknown Social History Social History Household Members: Spouse and Children Housing: [facility] Are you a primary health care liaison to a significant other at home: No Do you presently have visiting nurse or other home services: No Alcohol intake: current Alcohol intake frequency: holidays/special occasions only Alcohol type: wine Comment: Patient reports he drinks socially. Occasionally Patient Tobacco Use Status: Former Tobacco user Tobacco use type: Cigarette and Pipe Years Smoked: Age 20 Smoked in Last 30 Days: Yes e-Cigarette/Vaping Use: Currently Using Use of substances other than those prescribed or required for medical reasons: Yes Substance Use Type: Marijuana and Caffiene Substance Use Frequency: Daily Advance Directives: No Advance Directives Information Provided: No Do you have a plan to hurt others: No Plan service: No Current occupational status: employed Current occupation: [employer] Cognitive needs: Yes (Memory concerns) Hearing needs: No Vision needs: No Physical Exam ED Exam Exam: GENERAL: Ill-Appearing, appears uncomfortable. SKIN: Normal skin color for ethnicity, warm, dry, no rashes noted. HEENT: Normocephalic, atraumatic, no stridor, dry mucous membranes, dentition intact, EOMI, PERRLA. NECK: Soft, supple, full ROM, midline structures nontender, no step-offs, no deformities, no lymphadenopathy. CHEST: Heart regular rhythm, no murmurs, symmetric chest rise and fall. PULMONARY: Clear to auscultation bilaterally, diminished at the bases, no labored breathing, no wheezes/rhales/rhonchi. ABDOMINAL: Soft, nondistended, nontender, positive bowel sounds in all quadrants. : Deferred. MUSCULOSKELETAL: Normal tone, full range of motion, no deformities, no peripheral edema. NEURO: Alert and oriented x3, CN II through XII intact, equal strength and sensation bilateral upper and lower extremities, no focal neurologic deficits. PSYCHIATRIC: Flat affect, fluid speech, good eye contact and appropriate demeanor. Vital Signs: Vital Signs - 24 hr 07/10/25 19:20 07/10/25 20:16 07/10/25 20:16 Temperature 98.5 F Pulse Rate 77 60 60 Respiratory Rate 20 Blood Pressure 129/66 106/51 L 101/56 L Pulse Oximetry 96 Oxygen Delivery Method Room Air 07/10/25 20:31 07/10/25 20:32 07/10/25 20:34 Temperature 98.7 F Pulse Rate 62 89 Respiratory Rate Blood Pressure 104/61 Pulse Oximetry 95 Oxygen Delivery Method Room Air 07/10/25 21:43 Temperature Pulse Rate 51 Respiratory Rate 16 Blood Pressure 103/48 L Pulse Oximetry 96 Oxygen Delivery Method Room Air BMI result Body Mass Index 22.6 Course Course Course Narrative: RME, this is a rapid medical exam performed by Maxwell Martin please refer to primary provider for complete H&P- 34 year male presents for evaluation of 2 syncopal episodes. The patient accidentally bit his tongue and passed out when he saw the blood. However, about 10 minutes later he passed out again while going to the bathroom. He struck his head when he fell. This has happened in the past when he has seen blood. He was apparently unconscious for only a couple of sec before coming to. Plan for syncope workup in his CT scan of the brain given the head trauma Medical Decision Making Medical Decision Making [facility] Narrative: Patient presents today with chief complaint of syncope. I considered multiple diagnoses of etiology including most importantly cardiac arrhythmia, seizure, subarachnoid hemorrhage, vascular catastrophe such as AAA, as well as other more common etiologies such as a vasovagal syncope and orthostasis. Broad-based work-up was initiated to evaluate etiology including head CT, EKG and bloodwork. Patient's clinical picture today is most consistent with a vasovagal episode. Blood work is reassuring, head CT does not show evidence of acute traumatic process. Plan for discharge home follow up with primary care. Discharged in stable condition. Differential Diagnosis Differential Diagnoses: The differential diagnosis associated with the presentation includes (As above) Admission/Observation Consideration of admission/observation: Escalation of care including admission/observation considered Lab Data [facility] Lab Attestation statement: I reviewed the patient's lab results. 07/10/25 19:32 07/10/25 19:32 Labs: Lab Results 07/10/25 Range/Units 19:32 WBC 8.2 (4.8-10.8) X10*3/uL RBC 4.61 (4.60-5.80) X10*6/uL Hgb 14.3 (14.0-18.0) g/dl Hct 40.6 L (42.0-52.0) % MCV 88.1 (80.0-98.0) fL MCH 31.0 (27.0-33.0) pg MCHC 35.2 (31.0-36.0) g/dl RDW 11.9 (11.0-16.0) % Plt Count 153 L (160-400) X10*3/uL MPV 10.3 (9.4-12.4) fL Immature Gran % (Auto) 0.2 (0.0-0.4) % Neut % (Auto) 73.6 H (45-73) % Lymph % (Auto) 15.0 L (20-40) % Osborne % (Auto) 9.8 (2-11) % Eos % (Auto) 1.0 (0-4) % Baso % (Auto) 0.4 (0-2) % Lymph # (Auto) 1.2 (1.2-4.9) X10*3/uL Osborne # (Auto) 0.8 (0.1-1.2) X10*3/uL Eos # (Auto) 0.1 (0.0-0.4) X10*3/uL Baso # (Auto) 0.0 (0.0-0.2) X10*3/uL Abs Immat Gran (auto) 0.02 (0.00-0.03) X10*3/uL Absolute Neuts (auto) 6.0 (2.0-8.3) x10*3/uL Absolute Nucleated RBC 0.000 (0.0-0.012) X10*3/uL Nucleated RBC % (auto) 0.0 (0.0-0.2) /100WBC Sodium 143 (135-145) mmol/L Potassium 3.7 (3.3-5.1) mmol/L Chloride 107 (96-108) mmol/L Carbon Dioxide 29 (22-29) mmol/L Anion Gap 11 L (12-20) BUN 17 H (9-16) mg/dL Creatinine 1.13 (0.5-1.4) mg/dL Estim Creat Clear Calc 88.7 Estimated GFR > 60 Random Glucose 93 (60-115) mg/dL Calcium 9.2 D (8.4-10.2) mg/dL Total Bilirubin 0.4 (0.0-1.0) mg/dL AST 30 (5-37) U/L ALT 25 (0-40) U/L Alkaline Phosphatase 73 (39-117) U/L Troponin I High Sens < 2.7 (<3.5-35.0) ng/L Total Protein 7.0 (6.5-8.0) g/dL Albumin 4.6 (3.5-5.0) g/dL Lipase 26 (8-78) U/L Independent Interpretation I performed an independent interpretation of an: EKG Interpretation: My independent interpretation of the ECG reveals normal sinus bradycardia with rate of 58, normal axis, normal intervals, no ST elevations or depressions to suggest ischemic changes, no previous for comparison. Radiology Impression Discussion of test interpretation with radiology: I have reviewed the radiologist's reading. Independent Historian Clinical information obtained from an independent historian. History obtained from or confirmed by: Spouse Discharge Plan Discharge Clinical Impression: Vasovagal syncopes, Contusion of scalp Patient Disposition: Home, Self-Care Instructions: Syncope (ED) Additional Instructions: You passed out today because of something called vasovagal syncope. This is a phenomenon that occurs when you get overwhelmed with emotion or when you see the sight of your own blood. If you feel like you are going to pass out again, you should lay down on the floor immeditely. Put your legs above the level of your heart. Return to the emergency department with any new or worsening symptoms including: Worsening headaches, fevers greater than 100?, shortness of breath, numbness/tingling/weakness of the extremities, any new symptom that concerns you. Call 911 with any medical emergency. Prescriptions: No Action naproxen 500 mg tablet 500 mg PO BID Qty: 14 0RF cyclobenzaprine 10 mg tablet 10 mg PO BEDTIME PRN (Reason: muscle spasm) Qty: 7 0RF prednisone PO diclofenac sodium [Voltaren Arthritis Pain] 1 % gel 2 g topical QID Qty: 100 0RF Rx Instructions: apply to single elbow, wrist or hand; for hand includes palm/fingers/back of hand Print Language: [place] Leonean
--- NOTE | 2025-07-10 19:21 | ECG_ITS ---
Test Reason : SYNCOPE Blood Pressure : */* mmHG Vent. Rate : 58 BPM Atrial Rate : 58 BPM P-R Int : 146 ms QRS Dur : 86 ms QT Int : 402 ms P-R-T Axes : 76 81 58 degrees QTcB Int : 394 ms Sinus bradycardia Otherwise normal ECG No previous ECGs available Referred By: Callum Martin Electronically Signed By: KAY ROSADO
[2025-07-10 19:36] LABS: MANUAL DIFF FLAG NO
[2025-07-10 19:38] LABS: Hematocrit 40.6 % (42.0-52.0); Hemoglobin 14.3 g/dl (14.0-18.0); Imm Gran Abs Auto 0.02 X10*3/uL (0.00-0.03); Imm Gran Pct Auto 0.2 % (0.0-0.4); Lymphocytes Absolute Auto 1.2 X10*3/uL (1.2-4.9); Mean Corpuscular HGB Conc 35.2 g/dl (31.0-36.0); Mean Corpuscular Hemoglobin 31.0 pg (27.0-33.0); Mean Corpuscular Volume 88.1 fL (80.0-98.0); NRBC Abs Auto 0.000 X10*3/uL (0.0-0.012); NRBC Pct Auto 0.0 /100WBC (0.0-0.2); Platelet Count 153 X10*3/uL (160-400); Red Blood Count 4.61 X10*6/uL (4.60-5.80); White Blood Count 8.2 X10*3/uL (4.8-10.8)
[2025-07-10 19:52] LABS: Alanine Aminotransferase 25 U/L (0-40); Albumin Level 4.6 g/dL (3.5-5.0); Alkaline Phosphatase 73 U/L (39-117); Anion Gap 11 (12-20); Aspartate Amino Transferase 30 U/L (5-37); Blood Urea Nitrogen 17 mg/dL (9-16); Calcium 9.2 mg/dL (8.4-10.2); Carbon Dioxide 29 mmol/L (22-29); Chloride 107 mmol/L (96-108); Creatinine Clr Calc Pharmacy 88.7; Estimated Glomerular Filt Rate > 60; Lipase 26 U/L (8-78); Potassium 3.7 mmol/L (3.3-5.1); Sodium 143 mmol/L (135-145); Total Protein 7.0 g/dL (6.5-8.0)
[2025-07-10 20:07] LABS: Troponin-I High Sensitivity < 2.7 ng/L (<3.5-35.0)
== END 2025-07-10 22:40 | disposition home or self-care (01) ==
PROVIDERS: Physician Assistant; Emergency Provider Emergency Medicine; PCP Internal Medicine
DX: R55 Syncope and collapse (principal); S00.03XA Contusion of scalp, initial encounter; W18.39XA Other fall on same level, initial encounter; Y93.89 Activity, other specified; Y92.9 Unspecified place or not applicable; Y99.9 Unspecified external cause status
CPT/HCPCS: 36415; 70450; 80053; 83690; 84484; 85025; 93005; 99284; 99285

== ENCOUNTER → 2025-07-10 19:20 | Outpatient (BNV) | payer BC, SELFPAY | PROVIDERS: Emergency Provider Emergency Medicine; PCP Internal Medicine; Visit Provider Radiology Diagnostic Radiology | DX: S09.90XA Unspecified injury of head, initial encounter (principal); R55 Syncope and collapse | CPT/HCPCS: 70450 ==

== ENCOUNTER → 2025-07-10 19:21 | Outpatient (BNV) | payer BC, SELFPAY | PROVIDERS: Emergency Provider Emergency Medicine; PCP Internal Medicine; Visit Provider Internal Medicine | DX: R00.1 Bradycardia, unspecified (principal) | CPT/HCPCS: 93010 ==

== ENCOUNTER 2025-07-19 10:39 | Outpatient (AMB) | payer BC, SELFPAY ==
--- NOTE | 2025-07-19 10:48 | MHC.PC.OV ---
Vital Signs 07/19/25 10:54 Height 5 ft 8 in Weight 155 lb 6 oz BMI 23.6 BP 106/68 Blood Pressure Location Lt brachial Position Sitting Respiration 12 Pulse 94 Pulse Source Pulse Oximeter Temp 98.2 F Temp Source Oral Pulse Oximetry (%) 96 Oxygen Delivery Method Room Air Intake Visit Reasons: muscle and joint pain Intake Note: Muscle and joint pain. Harness Maker Required: No Allergies No Known Allergies (No Known Allergies*) Allergy (Verified 07/19/25 10:49) Tobacco use date assessed: 07/19/25 Dental Screening Dental Screen Date: 07/09/24 HPI HPI Comments History of Present Illness Details Patient is a 34 year old male with a past medical history of polymyalgia, polyarthralgia presenting for follow up Chronic complaints of Bilateral knee pain: Saw ortho. May go back and consider injection. Knee xrays were normal Finger injuries: Right thumb pain, cant flex x >6 months Neck & low back intermittently flare: stable. Prior CT 5. Mild to moderate degenerative disc disease disease L5-S1 with mild to moderate right neural foraminal narrowing. Currently working at [employer] and lifting heavy objects but body more sore and painful predated this particular jobs History of bilateral hernia repair remotely. Right inguinal has been hurting. CT scan without recurrent hernia. Incidental marked stomach distension PHQ-9 positive. Patient feels that he is engaged in realism, mild depression and anxiety especially in light of worsening pain ROS see HPI PHYSICAL EXAM: GENERAL: Alert and oriented x 3. NAD. Tall slender EYES: EOMI. Anicteric. HENT: Moist mucous membranes. No scleral icterus. No cervical lymphadenopathy. LUNGS: Clear to auscultation bilaterally. CARDIOVASCULAR: Regular rate and rhythm. No murmur. No JVD. ABDOMEN: Soft, non-tender +bs EXTREMITIES: Arms are long. No edema. Non-tender. SKIN: Elbow bruising. Warm. NEUROLOGIC: No focal neurological deficits. CN II-XII grossly intact PSYCHIATRIC: Cooperative. Appropriate mood and affect [facility] Medical History Drug addiction IBS (irritable bowel syndrome) Right groin pain Syncope Neck pain Smoker Back pain Surgical History [place] teeth extracted Right inguinal hernia (04/25/23) Hx of hernia repair Family History Other Family history unknown Social History Household Members: Spouse and Children Housing: Condominium Are you a primary health care specialist to a significant other at home: No Do you presently have visiting nurse or other home services: No 75 years or older and lives alone: No Alcohol intake: current Alcohol intake frequency: holidays/special occasions only Alcohol type: wine Comment: Patient reports he drinks socially. Occasionally Patient Tobacco Use Status: Former Tobacco user Tobacco use type: Cigarette and Pipe Years Smoked: Age 20 e-Cigarette/Vaping Use: Currently Using Substance Use Type: Marijuana and Caffiene service: No Current occupational status: employed Current occupation: [employer] Cognitive needs: Yes (Memory concerns) Hearing needs: No Vision needs: No Questionnaire Thrive Questionnaire Date Thrive assessed: 12/07/24 I am a: Patient What is your living situation today?: I have a steady place to live Within the past 12 months, did the food you bought not last and you didn't have the money to get more?: Sometimes True Within the past 12 months, did you worry whether your food would run out before you got money to buy more?: Never true Do you have trouble paying for medicines?: No Do you have trouble getting transportation to medical appointments?: No Do you have trouble paying your heating and electricity bill?: No Do you have trouble taking care of your child, family member or friend?: No Do you have trouble with day-to-day activities such as bathing, preparing meals, shopping, managing finances, etc.?: Yes Are you currently unemployed and looking for a job?: No Are you interested in more education?: No Please select the resources that you would like help with: None Currently or been in a relationship where the following occur: No concerns reported THRIVE Score: 1 AUDIT C Alcohol Use Questionnaire (AUDIT-C) 1. How often do you have a drink containing alcohol?: Monthly or less 2. How many drinks containing alcohol do you have on a typical day when you are drinking?: 1 or 2 3. How often do you have six or more drinks on one occasion?: Never Total Score: 1 ITZEL-7 AMB Questionnaire ITZEL-7 Date ITZEL - 7 assessed: 07/09/24 Source: Developed by DrsGladis Jordan, Stacy Eduardo, Stephen Schultz and colleagues, with an educational ave from [employer]. Physical exam (Primary Care) Vital Signs: Last Vital Signs Temp 98.2 F 07/19/25 10:54 Pulse 94 07/19/25 10:54 Resp 12 07/19/25 10:54 BP 106/68 07/19/25 10:54 Pulse Ox 96 07/19/25 10:54 Oxygen Delivery Method Room Air 07/19/25 10:54 BMI result Body Mass Index 23.6 Tobacco/Smoking Status: Tobacco use Status Tobacco use date assessed 07/19/25 07/19/25 10:50 Patient Tobacco Use Status Former Tobacco user 07/19/25 10:50 Tobacco use type Cigarette,Pipe 07/19/25 10:50 e-Cigarette/Vaping Use Currently Using 07/19/25 10:50 Thrive Assessment: Date of Thrive Assessment Date Thrive assessed 12/07/24 07/19/25 10:50 Currently or been in a relationship where the following occur: No concerns reported Coding Level of Care Code Est Pt Level 5 (58909) Diagnoses Polyarthralgia M25.50 Muscle pain M79.10 Time Spent (min) 48 Assessment & Plan Assessment & Plan (1) Polyarthralgia: Code(s): M25.50 - Pain in unspecified joint Category: Medical (2) Muscle pain: Code(s): M79.10 - Myalgia, unspecified site Category: Medical Plan Chronic pain-muscle, joint. Fairly benign musculoskeletal findings on imaging Patient has long arms, history of hernia, stomach distenstion, anxiety/depression, easy bruising, family history of arthritis/pain-concern for EDS. 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
[2025-07-19 10:54] VITALS: BP 106/68; PULSE 94; RESP 12; TEMP 36.8; O2SAT 96; BMI 23.6
== END 2025-07-19 11:29 | disposition home or self-care (01) ==
LOC: HO.HMCFM 10:41
PROVIDERS: PCP Internal Medicine; Visit Provider Internal Medicine
DX: M25.50 Pain in unspecified joint (principal); M79.10 Myalgia, unspecified site

== ENCOUNTER 2025-07-19 10:39 | Outpatient (REF) | payer BC, SELFPAY ==
--- NOTE | ~2025-07-19 | XR_ITS ---
EXAMINATION: XR HAND, RIGHT CLINICAL INFORMATION: M35.3 - Polymyalgia rheumatica COMPARISON: None available. TECHNIQUE: PA, lateral, and oblique views of the right hand. FINDINGS: The bones and soft tissues are normal. No fracture. Alignment is anatomic. Joint spaces are maintained. No erosions or soft tissue calcifications. XR/XR hand RT min 3V IMPRESSION: Unremarkable right hand. Electronically signed by: Phil Claros MD 07/19/2025 12:16 PM EDT
== END 2025-07-19 10:40 | disposition home or self-care (01) ==
LOC: HO.XRAY 10:39
PROVIDERS: PCP Internal Medicine; Visit Provider Internal Medicine
DX: M35.3 Polymyalgia rheumatica (principal); M25.50 Pain in unspecified joint; M79.10 Myalgia, unspecified site
CPT/HCPCS: 73130

== ENCOUNTER → 2025-07-19 11:59 | Outpatient (BNV) | payer BC, SELFPAY | PROVIDERS: PCP Internal Medicine; Visit Provider Radiology Diagnostic Radiology | DX: M35.3 Polymyalgia rheumatica (principal) | CPT/HCPCS: 73130 ==

== ENCOUNTER 2025-08-01 13:12 | Outpatient (AMB) | payer BC, SELFPAY ==
--- NOTE | 2025-08-01 13:22 | A.OFFVIS_ITS ---
Vital Signs 08/01/25 13:33 Height 5 ft 8 in Weight 154 lb 5.177 oz BMI 23.5 Respiration 14 Intake Visit Reasons: CT scan results Intake Note: Patient is seen in office for CT scan results, following for right groin pain. Pt c/o: here for results, admits to increase pain in the groin area [employer] Required: No Accompanied by: Self / Same As Patient Allergies No Known Allergies (No Known Allergies*) Allergy (Verified 08/01/25 13:33) Medication List - Last Reconciled 08/01/25 by Chuy Jorgensen MD cyclobenzaprine 10 mg PO BEDTIME PRN gabapentin 200 mg (2 x 100 mg) PO TID naproxen 500 mg PO BID prednisone 40 mg (2 x 20 mg) PO DAILY HPI Comments Details: 35-year-old male patient returning to the office for re-evaluation after repair of a right inguinal hernia repaired on 04/25/[address] Fox. He was previously evaluated on 04/19/2025 at which time no definite palpable lump was identified. He continues to no tenderness in the right groin extending into the spermatic cord. This has especially increased when pressing objects against his abdomen at work. A CT abdomen and pelvis was performed on 06/29/2025. I reviewed the images in detail with the patient. No definite recurrent hernias identified. There is a fatty lucency noted in the right groin which may be the results of the mesh plug. This seems to be the area of his most increased tenderness. No other suspicious findings were identified. The patient reports having add itional musculoskeletal symptoms in his being worked up for Sowmya-Danlos syndrome Lyme disease, and other tick-borne diseases. [facility] Medical History Drug addiction IBS (irritable bowel syndrome) Right groin pain Syncope Neck pain Smoker Back pain Surgical History [place] teeth extracted Right inguinal hernia (04/25/23) Hx of hernia repair Family History Other Family history unknown Social History Household Members: Spouse and Children Housing: [facility] [place] Are you a primary healthcare administration internship to a significant other at home: No Do you presently have visiting nurse or other home services: No 75 years or older and lives alone: No Alcohol intake: current Alcohol intake frequency: holidays/special occasions only Alcohol type: wine Comment: Patient reports he drinks socially. Occasionally Patient Tobacco Use Status: Former Tobacco user Tobacco use type: Cigarette and Pipe Years Smoked: Age 20 e-Cigarette/Vaping Use: Currently Using Substance Use Type: Marijuana and Caffiene service: No Current occupational status: employed Current occupation: [employer] Cognitive needs: Yes (Memory concerns) Hearing needs: No Vision needs: No Review of Systems Const All systems reviewed & are unremarkable except as noted in HPI and below Physical Exam Vital Signs: Last Vital Signs Resp 14 08/01/25 13:33 BMI result Body Mass Index 23.5 Const General: no acute distress Nutritional Appearance: thin Orientation/consciousness: patient oriented x3 Limitations: no limitations Resp Effort & Inspection: normal respiratory effort, no audible wheezes, no cough and no respiratory distress GI Other: Thin abdominal wall with palpable plug mesh noted in the mid incision at the approximately the internal ring location. No changes are noted with Valsalva maneuvers. There is tenderness to palpation of the incision. No Redness or other evidence of infection are identified. No scrotal swelling is identified. Inspection: Yes normal to inspection Palpation (GI): Soft to palpation, Tenderness to palpation present (GI) (Right groin at inguinal incision) and no hernias Neuro General: patient oriented x3 Extrem General: Yes normal to inspection and No edema Assessment & Plan Assessment & Plan (1) Right groin pain: Code(s): R10.31 - Right lower quadrant pain Category: Medical Plan 35-year-old male patient returning for review of a recent CT abdomen and pelvis. No definite recurrent hernias identified. We again discussed wound exploration to evaluate mesh integrity which may or may not improve his symptoms. We also discussed pain management but he feels the pain is not his major problem at this time in his willing to live with his current symptoms. He will continue his other musculoskeletal workup and call should he wish to pursue wound exploration. He will follow up as needed. Coding Level of Care Code Est Pt Level 3 (48626) Diagnoses Right groin pain R10.31
[2025-08-01 13:33] VITALS: RESP 14; BMI 23.5
== END 2025-08-01 13:49 | disposition home or self-care (01) ==
LOC: HO.HGS 13:13
PROVIDERS: PCP Internal Medicine; Visit Provider Surgery
DX: R10.31 Right lower quadrant pain (principal)
CPT/HCPCS: 99213

== ENCOUNTER 2025-09-12 16:27 | Outpatient (AMB) | payer BC, SELFPAY ==
--- NOTE | 2025-09-12 16:22 | MHC.PC.OV ---
Intake Visit Reasons: 6 weeks follow-up Allergies No Known Allergies (No Known Allergies*) Allergy (Verified 09/12/25 16:24) Tobacco use date assessed: 09/12/25 Dental Screening Dental Screen Date: 09/12/25 Did you have a dental visit in the last 12 months?: No Did you have a dental problem in the last 6 months where you did not have access to dental care?: No Was dental information given to patient?: No HPI HPI Comments History of Present Illness Details Patient is a 35 year old male with a past medical history of polymyalgia, polyarthralgia presenting for follow up Chronic complaints of Bilateral knee pain: Saw ortho. Knee xrays were normal. Might consider injection Finger injuries: Right thumb pain, cant flex x >6 months Neck & low back intermittently flare: stable. Prior CT 5. Mild to moderate degenerative disc disease disease L5-S1 with mild to moderate right neural foraminal narrowing. Currently working at [employer] and lifting heavy objects but body more sore and painful predated this particular jobs He has had some improvement on gabapentin which he needs refilled He [facility] to [facility] [place] for evaluation of EDS He has an upcoming visit with [facility] History of bilateral hernia repair remotely. Right inguinal has been hurting. CT scan without recurrent hernia. Incidental marked stomach distension. Has seen general surgery since his last visit. ROS see HPI PHYSICAL EXAM: Telehealth [facility] Medical History Drug addiction IBS (irritable bowel syndrome) Right groin pain Syncope Neck pain Smoker Back pain Surgical History [place] teeth extracted Right inguinal hernia (04/25/23) Hx of hernia repair Family History Other Family history unknown Social History (Updated 09/12/25 @ 16:25 by William Jimenez MA) Household Members: Spouse and Children Housing: Condominium Are you a primary palliative care physician to a significant other at home: No Do you presently have visiting nurse or other home services: No 75 years or older and lives alone: No Alcohol intake: current Alcohol intake frequency: holidays/special occasions only Alcohol type: wine Comment: Patient reports he drinks socially. Occasionally Patient Tobacco Use Status: Former Tobacco user Tobacco use type: Cigarette and Pipe Years Smoked: Age 20 e-Cigarette/Vaping Use: Currently Using Substance Use Type: Marijuana and Caffiene service: No Current occupational status: employed Current occupation: [employer] Cognitive needs: Yes (Memory concerns) Hearing needs: No Vision needs: No Questionnaire Thrive Questionnaire Date Thrive assessed: 12/07/24 ITZEL-7 AMB Questionnaire ITZEL-7 Date ITZEL - 7 assessed: 07/09/24 Source: Developed by Drs. Dani Jordan, Stacy Eduardo, Stephen Schultz and colleagues, with an educational ave from [employer]. Physical exam (Primary Care) Tobacco/Smoking Status: Tobacco use Status Tobacco use date assessed 09/12/25 09/12/25 16:25 Patient Tobacco Use Status Former Tobacco user 09/12/25 16:25 Tobacco use type Cigarette,Pipe 09/12/25 16:25 e-Cigarette/Vaping Use Currently Using 09/12/25 16:25 Thrive Assessment: Date of Thrive Assessment Date Thrive assessed 12/07/24 09/12/25 16:25 Telehealth Telehealth Telehealth Platform: Telephone Location of provider rendering services: practice address Location of patient: address on file Patient Identification confirmed using: Name, : Yes Telehealth method: voice only Patient verbally consented to treatment: Yes Patient verbally consented to billing insurance company: Yes Patient informed of any privacy concerns related to visit: Yes Minutes spent on Phone/Video with Pt.: 22 Coding Level of Care Code Tele Est Pt Level 3 (43078) Diagnoses Polymyalgia M35.3 Chronic low back pain without sciatica, unspecified back pain laterality M54.50; G89.29 Back pain location: low back pain Chronicity: chronic Back pain laterality: unspecified Sciatica presence: without sciatica Right hand pain M79.641 Assessment & Plan Assessment & Plan (1) Polymyalgia: Code(s): M35.3 - Polymyalgia rheumatica Category: Medical (2) Back pain: Code(s): M54.9 - Dorsalgia, unspecified Category: Medical Qualifiers: Back pain location: low back pain Chronicity: chronic Back pain laterality: unspecified Sciatica presence: without sciatica Qualified Code(s): M54.50 - Low back pain, unspecified; G89.29 - Other chronic pain (3) Right hand pain: Code(s): M79.641 - Pain in right hand Category: Medical Plan Polyarthralgia/polymyalgia Labs, imaging have been reassuring Advised to reach out to genetics Advised to reach out to start accupressure treatments Gabapentin refilled Continue prn naproxen Medications: Discontinued cyclobenzaprine Discontinued Reason: Doctor's Order 10 mg PO BEDTIME PRN 7 tabs 0RF muscle spasm prednisone Discontinued Reason: Doctor's Order 40 mg (2 x 20 mg) PO DAILY 10 tabs 0RF
== END 2025-09-12 17:00 | disposition home or self-care (01) ==
LOC: HO.HMCFM 16:27
PROVIDERS: PCP Internal Medicine; Visit Provider Internal Medicine
DX: M35.3 Polymyalgia rheumatica (principal); M54.50 Low back pain, unspecified; M79.641 Pain in right hand

== ENCOUNTER 2025-09-19 14:28 | Outpatient (AMB) | payer BC, SELFPAY ==
--- NOTE | 2025-09-19 14:30 | A.OFFVIS_ITS ---
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 States he has no idea of how he might have injured it. Currently states his pain is triggered by applying pressure or with certain movements. He is also having a little numbness and tingling daily on and off through out the day. Past Medical Hx of Polymyalgia Rheumatica, Polyarthralgia, and Sowmya-Danos syndrome. 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 States he has no idea of how he might have injured it. Currently states his pain is triggered by applying pressure or with certain movements. He is also having a little numbness and tingling daily on and off through out the day. Patient states that he feels the IP joint of the right thumb ?clicking in and out of place?. Patient states he feels that the joint is dislocating. No other acute comp laints or concerns at this time. Past Medical Hx of Polymyalgia Rheumatica, Polyarthralgia, and Sowmya-Danos syndrome. [facility] Medical History Drug addiction IBS (irritable bowel syndrome) Right groin pain Syncope Neck pain Smoker Back pain Surgical History [place] teeth extracted Right inguinal hernia (04/25/23) Hx of hernia repair Family History Other Family history unknown Social History Household Members: Spouse and Children Housing: Condominium Are you a primary home care provider to a significant other at home: No Do you presently have visiting nurse or other home services: No 75 years or older and lives alone: No Alcohol intake: current Alcohol intake frequency: holidays/special occasions only Alcohol type: wine Comment: Patient reports he drinks socially. Occasionally Patient Tobacco Use Status: Former Tobacco user Tobacco use type: Cigarette and Pipe Years Smoked: Age 20 e-Cigarette/Vaping Use: Currently Using Substance Use Type: Marijuana and Caffiene service: No Current occupational status: employed Current occupation: [employer] Cognitive needs: Yes (Memory concerns) Hearing needs: No Vision needs: No Review of Systems Const All systems reviewed & are unremarkable except as noted in HPI and below Physical Exam Vital Signs: BMI result Body Mass Index 23.4 Extrem Other: Patient is alert, oriented, and in no acute distress. Neuro: Normal sensation of the tips of all digits of the right hand at this time Vascular: Cap refill brisk Pain: Discomfort with range of motion of the IP joint of the right thumb There does appear to be some popping at this joint, not consistent with trigger finger, but there does appear to be some subluxation volarly at the IP joint Skin: No lacerations or abrasions. General: No ecchymosis, erythema, or evidence of infection. Psych: Appears grossly normal Affect normal Attitude cooperative Results Reviewed Results Reviewed: X-rays obtained in the office today and independently reviewed by me, Martell Diamond PA-C, demonstrate volar displacement of the distal phalanx of the right thumb concerning for potential subluxation of the IP joint. 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 Bates for potential instability of the IP joint of the right thumb Therefore, patient is booked for next available surgical consult with Dr. Bates Patient is educated that there may not be anything surgical that we will be able to do for this injury, but I feel it is best for him to be evaluated by the surgeon for final determination of this Patient understands this in his amenable to this plan Follow-up with Dr. 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
[2025-09-19 14:31] VITALS: BMI 23.4
== END 2025-09-19 14:58 | disposition home or self-care (01) ==
PROVIDERS: PCP Internal Medicine
DX: M25.341 Other instability, right hand (principal)
CPT/HCPCS: 99213

== ENCOUNTER 2025-10-19 14:30 | Outpatient (AMB) | payer BC, SELFPAY ==
--- NOTE | 2025-10-19 15:11 | A.OFFVIS_ITS ---
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 Last seen with Urban Moura, complaining of approximately 1 year of Right Thumb Swelling and limited ROM. States he has no idea of how he might have injured it. Currently states his pain is triggered by applying pressure or with certain movements. He is also having a little numbness and tingling daily on and off through out the day. Urban Moura advise patient to be re-evaluated with Dr Bates. Allergies No Known Allergies (No Known Allergies*) Allergy (Verified 10/19/25 15:13) HPI HPI OV-DIscussion of ?chronic R thumb MCP joint instab: Details: Albert is a 35 year old right hand dominant man who presents for right thumb instability. He complains of ~1 year right thumb swelling, pain, and limited ROM. His pain is worse when applying pressure or with certain ROM. He says he wears a thumb brace often at work for support. He works at [employer]. He says he is working with his doctor on other health concerns, including a possible Sowmya-Danlos syndrome Dx. He denies any known injury. He has Polymyalgia PFSH Medical History Drug addiction IBS (irritable bowel syndrome) Right groin pain Syncope Neck pain Smoker Back pain Surgical History [place] teeth extracted Right inguinal hernia (04/25/23) Hx of hernia repair Family History Other Family history unknown Social History Household Members: Spouse and Children Housing: Condominium Are you a primary childcare aide to a significant other at home: No Do you presently have visiting nurse or other home services: No 75 years or older and lives alone: No Alcohol intake: current Alcohol intake frequency: holidays/special occasions only Alcohol type: wine Comment: Patient reports he drinks socially. Occasionally Patient Tobacco Use Status: Former Tobacco user Tobacco use type: Cigarette and Pipe Years Smoked: Age 20 e-Cigarette/Vaping Use: Currently Using Substance Use Type: Marijuana and Caffiene service: No Current occupational status: employed Current occupation: [employer] Cognitive needs: Yes (Memory concerns) Hearing needs: No Vision needs: No Review of Systems Const All systems reviewed & are unremarkable except as noted in HPI and below Physical Exam Vital Signs: BMI result Body Mass Index 23.4 Const General: cooperative, healthy appearing and no acute distress Orientation/consciousness: patient oriented x3 HEENT Head: Yes normocephalic and Yes atraumatic Eyes EOM: EOMs intact bilaterally Resp Effort & Inspection: normal respiratory effort and able to speak in complete sentences Cardio Jugular venous distension: no JVD Skin General skin exam: turgor normal Rashes: no rashes Neuro General: patient oriented x3 Extrem Other: Evaluation of Right Upper Extremity: The patient is alert, oriented, and in no acute distress Neuro: Median, Ulnar, Radial nerves motor and sensory intact and sensation is normal to the tips of all digits Vascular: Cap refill brisk ROM: He can make a fist and extend all of his digits. He has good active flexion and extension of the thumb, with no locking or catching. Regarding the MCP joint there is no swelling and it is nontender. Both the right thumb MCP accessory collateral and the true ulnar collateral ligament are intact with good endpoints and no laxity. The patient demonstrated to me that it is only when he hyperflexes the MCP joint to about 90 degrees that he then experiences pain with loading of the ligaments on the ulnar side. Indeed, when I flex him to 90 degrees he does appear to have more give when testing the ulnar sided ligaments and this does cause some discomfort. I did however point out to him that there is no functional reason to use her thumb in this position. He points out and demonstrates how he likes to hyperflex the joint to make it pop. He has also injured it accidentally when the thumb was flexed in the MCP joint and then he was moving forward and struck a desk thus causing a radially directed load against the ulnar ligamentous structures of the MCP joint. He also similarly has had trouble when he has a thumb in this position and he has tucking his shirt in 2 his pants and bringing his thumb forward or when wrestling with his are children. Again we could not think of any functional activity where he would intentionally put his thumb in his positioned to use it. Skin: No lacerations or abrasions. General: No Ecchymosis. No Erythema or evidence of infection. Radiographs: 3 view of the right hand from 07/19/25 were reviewed by me today in clinic. They show no fractures, dislocations, or arthritic changes. 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 Right thumb MCP joint laxity UCL & accessory CL intact & stable Pain with MCP joint flexed to 90 degrees or more and stressing of the ulnar side of the joint Patient with possible diagnosis of Sowmya-Danlos syndrome I educated him about this condition I discussed non-operative treatment options. I am not recommending any kind of surgical management. I recommend bracing & activity modification I ordered OT hand therapy to have them fashion a custom hand-bad thermoplastic splint, which allows for thumb IP joint motion but restricts MCP joint extension to no more than ~50 degrees of flexion, while allowing to pinch against his thumb, He should wear this while symptomatic, but remove this when at rest He should be mindful to not flex his thumb MCP joint beyond ~50 degrees, especially not to 90+ degrees as he tends to do at times. I also has some to try not to pop the joint He is going to try these conservative measures and see how things improve. He can follow up prn Scribed for Kristina Bates MD by Alvin العلي, manager medical device, on 10/19/25 at 3:20 PM, EST. 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
[2025-10-19 15:13] VITALS: BMI 23.4
== END 2025-10-19 15:39 | disposition home or self-care (01) ==
LOC: HO.HOS 14:31
PROVIDERS: PCP Internal Medicine; Visit Provider Orthopaedic Surgery
DX: M25.341 Other instability, right hand (principal); Q79.60 Ehlers-Danlos syndrome, unspecified
CPT/HCPCS: 99214